=== PATIENT | female | born 1970 | race Caucasian/White ===

== ENCOUNTER 2025-06-25 14:55 | Outpatient (AMB) | payer OTHER, SELFPAY ==
--- NOTE | 2025-06-25 15:32 | MHC.OFFVIS ---
Vital Signs 06/25/25 15:37 Height 5 ft 4 in Weight 150 lb BMI 25.7 Intake Visit Reasons: MRI followup Intake Note: Patient is a 54 year old female here today to review recent MRI. pain has been a little better the past week Allergies venlafaxine Allergy (Unknown, Verified 06/25/25 15:33) Unknown HPI Comments Details: History of Present Illness The patient is a 54 year old female presenting for a follow-up visit for management of right-sided low back pain with radiculopathy. She reports feeling better overall since her last visit. She continues to experience occasional, intermittent pain that starts in her back and shoots to the side, described as a dull zing with a heavy sensation in the leg. She underwent right L4-5 facet injection to rupture cyst as well as right L4 TFESI. One week after the injection her symptoms became worse. I ordered MRI of her lumbar spine to ensure that everything was okay. We are reviewing it in person today. She was subsequently given prednisone taper which did provide relief of her symptoms. She reports pain level today of 3/10. 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 She has been performing exercises at home, such as lying over a pillow, which seems to provide some relief. Pain Description - Location: Right-sided low back pain. - Radiation: Pain shoots over to the right side and leg. - Quality: Described as a dull zing in the back and a heavy feeling in the leg, though it can also be sharp. - Timing: Intermittent and occurs periodically. - Severity: Pain level is reported as good today, but there have been a couple of really uncomfortable days. - Exacerbating Factors: Stretching can occasionally trigger the pain. - Relieving Factors: Moving around helps alleviate the pain when it starts, and lying over a pillow provides relief. Procedure: Left hip bursal injection 10/28/2022 Left L5 TFESI 12/09/2022 80% reduction of her pain Left hip bursal injection 02/16/2023 Right L4-5 facet injection, right L4 TFESI 04/25/2025 one-week a very good relief then her symptoms worsened. 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 - Musculoskeletal: Reports intermittent right-sided low back pain and arthritis. - Neurological: Reports intermittent pain that shoots to the side with a heavy sensation in the leg. Physical Exam Exam Exam: Physical Exam Lumbar Spine: Examination of the lumbar spine, there is no visible swelling or deformity. She is less tender of the right lower lumbar facets. She has full range of motion of the lumbar spine. She denies any increase in pain with facet loading. Special Tests: Lhermittes sign was negative Heel Toe walk is normal Left straight leg raise: Negative Right straight leg raise: Negative Special tests Ashok test is negative Ganslen's test is negative SI Joint compression test negative Yenni test negative Piriformis stretch is negative Lower Extremities: Full range of motion bilateral lower extremities. No calf pain or edema. Neuro: Sensation: Intact to lower extremities bilaterally Strength L2 (Psoas): 5/5 on the left and 5/5 on the right. L3 (Quads): 5/5 on the left and 5/5 on the right. L4 (Ant tibialis): 5/5 on the left and 5/5 on the right. L5 (EHL) 5/5 on the left and 5/5 on the right. S1 (Gastroc): 5/5 on the left and 5/5 on the right. DTR L4: (Patellar) Left 2 Right 2 S1: (Achilles) Left 2 Right 2 Babinski Downgoing No pathologic clonus. No involuntary movement. Vital Signs: BMI result Body Mass Index 25.7 Results Reviewed Results Reviewed: MRI left hip 08/03/2022 impression: Left moderate gluteus medius and minimus tendinopathy with low-grade intrasubstance tear of the gluteus medius at the greater trochanter. Moderate associated peritonitis. Left labral degeneration superimposed anterior labral degenerative tears. MRI lumbar spine without contrast 06/12/2022 impression: Unusual cystic appearing structure extending from the base of the L5 spinous process to the left lamina, left pedicle, left superior facet. There is minimal marginal enhancement. Where the lesion is largest base of the spinous process there is thinning of the overall cortex. No fracture identified. Etiology is unknown. The greatest amount of cystic spaces at the L5 levels relatively remote from the site of significant bilateral L5-S1 facet arthropathy. No enhancing components are present to suggest underlying tumor or definitive septations or fluid levels are noted to suggest trying cell tumor. There is concern for continued progression could lead to path phonological laminar fracture, continued follow-up MRI or CT suggested. MRI lumbar spine 06/03/2025 impression: Multilevel lumbar spondylosis, as above, most prominent L4-5 and L5-S1. Grade 1 anterior listhesis of L4 on L5 and L5 on S1. Cystic change along the posterior aspect of L5. Assessment & Plan Assessment & Plan (1) Lumbar radiculopathy: Code(s): M54.16 - Radiculopathy, lumbar region Category: Medical (2) Lumbar spondylosis: Code(s): M47.816 - Spondylosis without myelopathy or radiculopathy, lumbar region Category: Medical Plan Pain Management - Analgesia: The patient reports her pain today is good. - She previously had an injection and a course of prednisone, both of which provided significant relief. - She had been taking half a pill of an unspecified medication but discontinued it, feeling it was no longer needed. 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 - Adverse Effects: The patient expressed initial concerns about gaining weight or developing a fat face from prednisone but did not report experiencing these side effects. 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 - While some days have been uncomfortable, she reports she is not dying at the end of the day. - The prednisone made her feel more energetic and able to complete chores. - Aberrant Drug Related Behaviors: No aberrant behaviors were reported. Plan Patient was informed and verbally consented to the use of an ambient scribe for clinic note documentation during this visit. 1. Right-Sided Low Back Pain With Radiculopathy The patient reports overall improvement in her symptoms. A recent MRI was reviewed, which showed no evidence of infection or progression of a previously noted synovial cyst; in fact, the cyst is no longer clearly visible. The scan confirms bilateral neuroforaminal narrowing at L4-L5, which is touching the exiting right L4 nerve root and is the likely cause of her radicular symptoms. The patient will continue with conservative management, including home exercises. The use of turmeric was discussed as a natural anti-inflammatory. Options for future acute exacerbations include a prednisone taper or a repeat transforaminal epidural steroid injection. The patient will continue with her current regimen and follow up as needed. Discussion Notes I reviewed the patient's recent MRI results with her. I explained that there were reassuring findings, as the previously seen synovial cyst is no longer visible and there are no signs of infection or other acute issues. I informed her that the MRI confirms disc bulges, arthritis, and neuroforaminal narrowing at L4-L5, which is compressing the right L4 nerve root and is consistent with her symptoms. We discussed the patient's positive response to her recent course of prednisone. I advised her that while prednisone is an effective tool for acute flare-ups, it is not suitable for long-term use due to significant side effects, such as a negative impact on bone health. We reviewed future management options, including continuing her current exercise regimen, trying natural anti-inflammatories like turmeric, utilizing a prednisone taper for flare-ups, or considering a repeat transforaminal epidural steroid injection. The patient is in agreement with continuing conservative management and will follow up if her symptoms worsen. Patient Instructions - Your recent back MRI results are reassuring and do not show anything dangerous. - The cyst we were concerned about is no longer seen. - Continue with your home exercises, such as laying over a pillow, as this appears to be helping. - You can consider trying turmeric, which is a natural anti-inflammatory supplement. - If you have a severe flare-up of pain, we can discuss either a short course of steroid pills (prednisone) or another steroid injection. - Remember that steroid pills are not for long-term use because of potential side effects. - Please call the office if your pain gets significantly worse or you develop any new or concerning symptoms. Coding Level of Care Code Tele Est Pt Level 3 (74760) Diagnoses Lumbar radiculopathy M54.16 Lumbar spondylosis M47.816
[2025-06-25 15:37] VITALS: BMI 25.7
--- OUTSIDE RECORDS SUMMARY | 2025-06-25 23:27 | XMS_ITS | Data Portability ---
Author Organization [place] - [facility] in [facility],, ANA LILIA KIRK MD Address [address] [address] Care Team Providers Care Junk Dealer Name Role Phone RONRIA Primary Care Provider Assessment No assessment recorded. Plan of Treatment Reminders Order Date Submit Date Provider Last Modified By Organization Details Last Modified Time Details Appointments None recorded. Lab pap test, thinprep, cervical 2015 016 [id number] [facility], Cytopathology Service, [address] [place], [address], 6 04:20:31 TSH + free T4, serum 2014 015 [email or web address] 1 [facility], [address] [place], [address], 5 12:24:21 pap test, thinprep, cervical 2014 015 STEWART [facility], Cytopathology Service, [address] [place], [address], 5 10:56:37 fecal occult blood, stool 2014 015 [email or web address] 1 In-Office Order, Internal Use Only DO Not Attach Compendium DO Not Attach Compendium, Do Not Delete/merge, [id number] 5 09:40:17 CBC w/ auto diff 2013 014 [email or web address] [facility], [address] [place], [address], 4 10:48:01 TSH, serum or plasma 2013 014 [facility], [address] [facility], [place], [address], 4 10:48:01 Referral None recorded. Procedures None recorded. Surgeries None recorded. Imaging MAMMO, screening , digital, bilateral 2015 016 [facility], [address], [place], [address], 7 11:48:58 MAMMO, screening , digital, bilateral 2014 015 [facility], [address], [place], [address], 5 19:06:32 Medication Orders fluoxetin e 20 mg capsule 2014 015 [email or web address] 1 [facility], [address] [place] [address], [address], 5 12:24:21 fluoxetin e 10 mg capsule 2014 015 [email or web address] 1 [facility], [address] [place] [address], [address], 5 09:40:17 Patient TargetsNo targets recorded. Patient Instructions Encounter Date Encounter Id Patient Instructions Last Modified By Organization Details Last Modified Time 12/27/2013 [id number] Vaginal Bleeding (Nonpregnancy): Care Instructions [email or web address] Not available 12/30/2013 07:21:06 She is here for a new patient visit for a complaint of constant spotting with her Mirena. Her son was born 7 months ago. She had SROM at 37 weeks gestation, not in labor. She was induced and delivered before 24 hours of SROM. Six days she developed a post uterine infection, and was treated with oral antibiotics as an out patient for 21 days, in 05/29. . She had the Mirena IUD inserted in 08/30. She notes that since the IUD was inserted she has had daily red to pink vaginal bleeding. She also has spotting after having bowel movements. She has not been sexually active since delivery due to lack of libido. She is still nursing. We discussed that she has not yet had a menses and had endometritis post , may have had a thick lining. suggest we check tsh and cbc and if no abnormality found then consider oral prometrium for 10 days to try to induce a withdrawal bleed. she is nursing, would not use synthetic progestin. We also discussed the option of a pelvic sonogram if we can not find and etiology or resolve this with a progestin withdrawl, however it has only been 4 months and it may resolve spontaneously still. All questions answered. 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 Not available 02/05/2015 09:40:17 She is here for annual exam, is doing well. Her Mirena was causing DUB previously, but now is having regular light menses, and is happy with the Mirena. She had a baby 20 months ago, and has found that this past year or so she feels dark and has gained 20 pounds because she has lost the interest in exercise that she used to have. I put down my yoga mat and I just go to sleep on it. She also has no libido, and feels uninterested in many things she used to enjoy. She denies poor parenting or suicidal ideation. We discussed issues of depression. Both her and sister have asked her if she had this, they are concerned. She agrees it is likely. She agrees to proxzac 10 mg a day for three months then return in 3 months for further evaluation and assessment. She has 2 breast masses which might be post surgical and is overdue for mammo, she will get mammo now. She agrees to call if they seem to get any larger. She is advised to get 1500 mg of calcium daily into her diet and supplements combined. There is a health benefit with adequate vitamin D supplementation to at least 400 units daily, daily aerobic exercise of 30 minutes, and stress reduction. Monthly self breast exam was taught, and stressed, and is advised to call if she discovers any new mass in the breast. Seat belt use for herself and passengers are advised. There are significant health benefits of becoming and remainig fit, with an optimal BMI. There is a potential reduction in chronic discomfort, diminished risks of hypertension, diabetes, and heart disease with the proper weight management. With a recommended BMI there can be improved mobility as she ages. Strategies to reach and maintain her target weight were discussed in detail. 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 She was begun on prozac, 10 mg a day, in January. She was 20 month at the time. After a month she noted I felt like I didn't have to cry, and felt that she was improved over how she had felt since childbirth. She notes she has had some depressive issues mildly on and off, since then, however in the past few weeks it has worsened, and she has also begun having anxiety attacks. She is uncertain if these are cyclic with her menses. Her father at age 46, when her mother was age 43. Her mother attempted suicide on Vincent [address] at the age of 44. The patient has this on her mind as well, although she denies suicidal ideation herself. She does wonder, however, if depression runs in her family. Her father was an alcoholic. the patient does not drink alcohol often, Because that can run in families also. Note from 01/2015: Discussion Notes She is here for annual exam, is doing well. Her Mirena was causing DUB previously, but now is having regular light menses, and is happy with the Mirena. She had a baby 20 months ago, and has found that this past year or so she feels dark and has gained 20 pounds because she has lost the interest in exercise that she used to have. I put down my yoga mat and I just go to sleep on it. She also has no libido, and feels uninterested in many things she used to enjoy. She denies poor parenting or suicidal ideation. We discussed issues of depression. Both her and sister have asked her if she had this, they are concerned. She agrees it is likely. She agrees to proxzac 10 mg a day for three months then return in 3 months for further evaluation and assessment. We had a long disucssion about all this. The holidays are always a difficult time for families, and life stresses abound. She agrees that she has been under unusual stress due to all this. We discussed increasing her to 20 mg a day of prozac and she feels this is a good choice. She has a parent who had alcohol abuse issues and another who attempted suicide on Bioserie, just a year younger than the age that she is now. We discussed the issues with this, as well. She denies suicidal ideation. We discussed the benefits of having her go for behavioral health sessions, she agrees to do so. She could also be having some yan-menopausal issues, and is advised to read The Change Before the Change', and to keep a record of when the anxiety attacks occur, in relation to her menses. She also seems to have a trace of lid lag on exam, verónica check TSH and Free T4. She has an appointment soon with her PCP, she will also discuss all this with him, and I will send a copy of today's note to him, as well. Plan: Increase prozac to 20 mg a day, return in 2 months for recheck check TSH and FT4 Follow up with PCP and consider behavioral health discussions Face to face discussion 35 minutes alfred Not available 07/06/2015 12:24:21 02/18/2016 [id number] She is here for annual exam. Ian placed 08/2013. She is still having normal regular menses. She stopped the prozac a few months ago, she had a post depression, but feels now that she is doing well off of it. She does have epsodes of anxiety during the day. She has gained 30 pounds also. She will discuss this with her PCP. She appears to be doing well. She is advised to get 1500 mg of calcium daily into her diet and supplements combined. There is a health benefit with adequate vitamin D supplementation to at least 400 units daily, daily aerobic exercise of 30 minutes, and stress reduction. Monthly self breast exam was taught, and stressed, and is advised to call if she discovers any new mass in the breast. Seat belt use for herself and passengers are advised. There are significant health benefits of becoming and remainig fit, with an optimal BMI. There is a potential reduction in chronic discomfort, diminished risks of hypertension, diabetes, and heart disease with the proper weight management. With a recommended BMI there can be improved mobility as she ages. Strategies to reach and maintain her target weight were discussed in detail. She will follow up Ron ramachandran Dr concerning her anxiety symptoms , difficult staying asleep, and weight gain. Not available 02/18/2016 16:09:58 Reason for Referral None Reported. Results Created Date Observation Date Name Description Value Unit Range Abnormal Flag Note LastModifiedBy Organization Detail LastModifiedTime 02/06/20 15 02/05/2015 fecal occul t blood , stool Occult Blood negati ve Not Available In-Office Order Internal Use Only DO Not Attach Compendium DO Not Attach Compendium, Do Not Delete/merge, [id number] 02/05/2015 08:38:30 02/06/20 15 02/05/2015 pap, LB [id number] ThinP rep Pap, Image d: NEGAT RICHARD FOR SQUAM OUS INTRA EPITH ELIAL ANDRES Mcdonald AND IFEOMA HAN . Daniel Brown hers, [place]( CP) (Case elect dian kinney wilbur d 02 10 2015) ADEQU ACY: Satis facto ry. Endoc ervic al/tr ansfo rmati on zone compo nent prese nt. SOURC E: ThinP rep Pap, Cervi vicki, Image d CLINI VICKI INFOR MATIO N: HPV If Diagn osis of ASCUS . LMP * Cytop athol ogy servi alcides provi ded by [facility] at the above addre ss. Not Available [facility] Cytopathology Service [address] [place], [address], 02/10/2015 10:56:37 07/06/20 15 07/06/2015 T4, free, serum comments [facility] [address] [facility] [place] [address] [phone] Not Available [facility] [address] [place], [address], 07/07/2015 04:21:17 07/06/20 15 07/06/2015 T4, free, serum free T4 0.94 NG/dL 0.70-1 .80 Not Available [facility] [address] [place], [address], 07/07/2015 04:21:17 07/06/20 15 07/06/2015 TSH, serum or plasm a comments [facility] [address] [facility] [place] [address] [phone] 00 Not Available [facility] [address] [place], [address], 07/07/2015 04:21:23 07/06/20 15 07/06/2015 TSH, serum or plasm a TSH 1.41 uIU/m L 0.40-4 .00 Not Available [facility] [address] [place], [address], 07/07/2015 04:21:23 02/18/20 16 02/18/2016 pap, LB [id number] ThinP rep Pap, Image d: NEGAT RICHARD FOR SQUAM OUS INTRA EPITH ELIAL LESIO N AND MALMIQUEL HAN . Herbert Lee a, CT( CP) (Case elect dian bowles d 02 19 2016) ADEQU ACY: Satis facto ry. Endoc ervic al/tr ansfo rmati on zone compo nent prese nt. SOURC E: ThinP rep Pap HPV IF ASCUS , Cervi vicki, Image d CLINI VICKI INFOR MATIO N: HPV If Diagn osis of ASCUS . last pap Not Available [facility] Cytopathology Service [address] [facility], [place], [address], 02/19/2016 16:05:28 02/18/20 15 02/17/2015 MAMMO , scree vee, digit al, bilat eral No observ ation record ed. [email or web address] [facility] [address], [place], [address], 02/18/2015 09:19:17 02/21/20 15 02/20/2015 digit al mammo gram, speci al views , unila teral No observ ation record ed. [facility] [address], [place], [address], 02/21/2015 09:09:30 Result Notes None recorded. Problems Name Problem SNOMED Code Status Onset Date Resolution Date Notes Provider Name and Address Organization Details Recorded Time Dysfunctio nal uterine bleeding Active Ana Lilia Kirk MD [address], [place], [address], [place] - [facility] [place] [facility], 5 12:25:56 Mammograph y abnormal 308106373 Active Ana Lilia Kirk MD [address], [place], [address], [place] [facility] [place] [facility], 5 12:25:56 Family history of alcoholism 327435098 Active father- alcoholism Ana Lilia Kirk MD [address] [employer],[address], [place], [address], [place] [facility], 5 12:25:56 Family history of mental disorder 736597126 Active mother- attempted suicide on Vincent [address], age 44 Ana Lilia Kirk MD [address], [place], [address], [place] [facility] [place] [facility], 5 12:25:56 Endometrit is 81061493 Active 2012 Ana Lilia Kirk MD [address] [employer],[address], [place], [address], [place] - [facility], 5 12:25:56 depression 05168502 Active 2014 prozac increased to 20 mg 07/06/15 Ana Lilia Kirk MD [address] [facility] [address], [address], [place] [facility], 5 12:25:56 Problem Notes None recorded. Procedures Surgical History Date Name Laterality Status Provider Name and Address Organization Details Recorded Time 9 Other completed [facility] - [facility], 12/27/2013 16:16:22 0 Laparoscopy completed [facility] - [facility], 02/05/2015 08:37:59 9 Breast Biopsy completed [facility] - [facility] in [facility], 12/27/2013 16:16:22 Imaging Results None recorded. Procedure Notes None recorded. Medical Equipment None Reported. Allergies No known drug allergies Medications Name Sig Start Date Stop Date Status Note LastModified by Organization Details LastModified Time doxycycline hyclate 100 mg capsule active Not Available Not Available N ot Available meloxicam 15 mg tablet 02/17 completed Not Available Not Available Not Available metronidazol e 500 mg tablet active Not Available Not Available Not Available oxycodone-ac etaminophen 5 mg-325 mg tablet active Not Available Not Available Not Available fluoxetine 10 mg capsule Take 1 capsule every day by oral route. 02/17 completed Not Available Not Available Not Available hydrocodone 5 mg-acetamino phen 500 mg tablet active Not Available Not Available Not Available ibuprofen 600 mg tablet active Not Available Not Available Not Available fluoxetine 20 mg capsule Take 1 capsule every day by oral route. 02/17 completed Not Available Not Available Not Available amoxicillin 875 mg-potassium clavulanate 125 mg tablet active Not Available Not Available Not Available active Not Available Not Avai lable Not Available Vitals Date Recorded Body height Body weight Body mass index (BMI) Heart rate Systolic And Diastolic Provider Name and Address Organization Details Last Updated DateTime 12/27/2013 163.83 cm 05394.40 0888 g 27.4 kg/m2 73 /min 131/85 mm[Hg] Arlyn Miner in [facility], 12/27/2013 16:16:22 Date Recorded Body weight Heart rate Body mass index (BMI) Body height Systolic And Diastolic Provider Name and Address Organization Details Last Updated DateTime 02/05/2015 39126.63 261 g 100 /min 26.3 kg/m2 162.56 cm 140/96 mm[Hg] Arlyn Miner in [facility], 02/05/2015 08:37:59 Date Recorded Body height Body weight Body mass index (BMI) Heart rate Systolic And Diastolic Provider Name and Address Organization Details Last Updated DateTime 02/18/2016 162.56 cm 25395.36 g 28.7 kg/m2 93 /min 140/90 mm[Hg] Arlyn Miner in [facility], 02/18/2016 15:25:54 Date Recorded Body height Body weight Body mass index (BMI) Heart rate Systolic And Diastolic Provider Name and Address Organization Details Last Updated DateTime 07/06/2015 162.56 cm 18846.22 498 g 26.4 kg/m2 91 /min 145/81 mm[Hg] Vesta Bradshawkev Miner in [facility], 07/06/2015 11:16:40 Social History Question Answer Notes LastModified by Organizat ion Details LastModified Time Tobacco Smoking Status Former Smoker Not Available [facility] 05/19/2020 03:19:40 What Is Your Level Of Caffeine Consumption? Moderate [id number] Information not available 05/19/2020 What Type Of Diet Are You Following? REGULAR [id number] Information not available 05/19/2020 Which Illicit Or Recreational Drugs Have You Used? No [id number] Information not available 05/19/2020 Do You Reside In Or Have You Traveled To An Area Where Ebola Virus Transmission Is Active? No [id number] Information not available 05/19/2020 Education 2 Year College Information not available 12/27/2013 High Number Of Sexual Partners No Information not available 02/18/2016 To Which Gender Do You Self-identify? Female Information not available 02/18/2016 Marital Status Informatio n not available 12/27/2013 Are You Sexually Active? Yes No Sex Drive Right Now [id number] Information not available 05/19/2020 How Much Tobacco Do You Smoke? No [id number] Information not available 05/19/2020 General Stress Level Medium Having A Little Anxiety Information not available 02/05/2015 How Many Years Have You Smoked Tobacco? 20 [id number] Information not available 05/19/2020 Have You Recently (within The Last 12 Weeks, Or During A Current ) Traveled To Or Lived In A Zika-affected Area? No Information not available 02/18/2016 Sex: Unknown Functional Status Question Answer Note LastModified by Organizat ion Details LastModified Time What is your level of alcohol consumption? 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 None [id number] Information not available 05/19/2020 Mental Status None recorded. Family History Relationship Description Onset Age of this Age Resolved Age Notes LastModified by Organization Details LastModified Time Father Problem 46 cancer , rare rapid Not available 07/06/2015 12:17:27 Medical History Condition Response Anesthesia complications N High Blood Pressure N Candidate for MyRisk panel N Autoimmune Condition N Thyroid Problems Y Kidney or Bladder Problems N Depression Y GI Problems N Lung Disease N Defects or Inherited Disease N Anemia N History of Ovarian Cancer N History of Breast Cancer N AVI exposure N BRCA testing in past N Osteopenia N Psychiatric Illness N Diabetes N Anxiety Disorder Y Arthritis N Headaches or Migraines N Infertility N Asthma N History of Cancer N Endometriosis Y Hepatitis N Heart Disease N Hypertension N Osteoporosis N Gynecological History Statement/Question Response Dysmenorrhea Flow Moderate Date of LMP 01/30/2016 Frequency of Cycle (Q days) 30 Duration of Flow (days) Age at Menarche Current Control Method IUD Age at First Child 38 Obstetrics History GPAL:G 8 P 2 0 6 2 Type Value Full Term 2 Spontaneous 6 Living 2 Total 8 Immunizations Vaccine Type Date Status Note Provider Nimesh calzada and Address Organization Details Recorded Time Influenza, split virus, trivalent, preservative 3 completed GIANLU[place] Ortiz in [facility], 12/27/2013 16:16:22 Influenza, split virus, trivalent, preservative 4 completed GIANLUCA Ortiz in [facility], 02/05/2015 08:37:59 influenza, unspecified formulation 5 completed GIANLUCA Ortiz in [facility], 02/18/2016 15:27:33 Past Encounters Encounter ID Performer Location Encounter Start Date Encounter Closed Date Diagnosis/Indication Diagnosis SNOMED-CT Code Diagnosis ICD10 Code Diagnosis IMO Codes Diagnosis Note [id number] MD ANA LILIA Barnes MD [address] [facility] [place] [address] 12/27/2013 15:48:46 12/27/2013 16:51:47 Dysfunctional uterine bleeding 78922880 [id number] MD ANA LILIA Barnes MD [address] [facility] [place] [address] 02/05/2015 08:24:16 02/05/2015 10:43:29 Specialized medical examination 26471710 Screening for malignant neoplasm of rectum 693125663 Screening mammography 81298341 depression 74247925 [id number] MD ANA LILIA Barnes MD [address] [facility] [place] [address] 07/06/2015 11:00:41 07/06/2015 13:43:14 depression 06135545 [id number] [id number] MD ANA LILIA Barnes MD [address] [facility] [place] [address] 02/18/2016 15:21:41 02/19/2016 08:41:07 Specialized medical examination 43160115 Z01.419 Screening for malignant neoplasm of rectum 027578751 Z12.12 Screening mammography 24 221690 Z12.31 Health Concerns Section Related Observation LastModified by Organization Detai ls LastModified Time None Recorded Concern Status LastModified by Organization Details LastModified Time None Recorded Advance Directives Directive None Recorded Payers Insurance Date Sequence Insurance Name Policy Number Policy Figueroa Covered Member ID Figueroa Member ID Guarantor Name 02/15/2016 1 [place] [id number] Danette Mancilla [id number] Danette Mancilla Notes Date Note Type Note Provider Name and Address Organization Details Recorded Time 12/27/2013 text/html ROS as noted in the HPI Ana Lilia Kirk MD [address], [place], [address], [place] - [facility], 12/27/2013 16:49:05 02/05/2015 text/html ROS as noted in the HPI Ana Lilia Kirk MD [address], [place], [address], [place] - [facility], 02/05/2015 09:40:36 07/06/2015 text/html ROS as noted in the HPI Ana Lilia Kirk MD [address], [place], [address], [place] - [facility], 07/06/2015 12:34:17 02/18/2016 text/html She is here for annual exam. She stopped the prozac a few months ago, she had a post depression, but feels now that she is doing well off of it. Ana Lilia Kirk MD [address], [place], [address], [place] - [facility], 02/18/2016 16:11:01 OBGyn Episode No OBEpisode recorded.
--- OUTSIDE RECORDS SUMMARY | 2025-06-25 23:27 | XMS_ITS | Encounter Summary ---
Author Organization [facility] Address [address] [place] [phone] Care Team Providers Care Brick Yard Hand Name Role Phone Jefferson Zhang Primary Care Provider Encounter Details Date Type Department Care Team (Late st Contact Info) Description 10/19/2021 Scanned Document [facility] [address] [facility] [address] [facility] [address] [place] [address] Provider, Historical . Social History Tobacco Use Types Packs/Day Years Used Date Smoking Tobacco: Never Assessed Comments Unknown Sex and Gender Information Value Date Recorded Sex Assigned at Female 11/17/2021 3:04 PM EDT Legal Sex Female 12:48 PM EST Gender Identity Female 11/17/2021 3:04 PM EDT Sexual Orientation Straight 11/17/2021 3: 04 PM EDT documented as of this encounter Plan of Treatment Not on file documented as of this encounter Procedures Procedure Name Priority Date/Time Associated Diagnosis Comments LAB SCAN Routine 10/14/2021 documented in this encounter Results * Lab Scan (10/14/2021) us Historical Provider LAB BLOOD ORDERABLES Final R esult documented in this encounter Visit Diagnoses Not on filedocumented in this encounter Care Teams Brick Yard Hand Relationship Specialty Start Date End Date Jefferson Zhang PA [address] [facility] [address] [place] [phone] PCP - General 11/05/21 documented as of this encounter
--- OUTSIDE RECORDS SUMMARY | 2025-06-25 23:27 | XMS_ITS | Encounter Summary ---
Author Organization [facility] Address [address] [place] [address] Phone Care Team Providers Care Plasterer Apprentice Name Role Phone Lior Velasquez MD Primary Care Provider [phone] Reason for Referral * Physical Therapy (Routine) - Closed Specialty Diagnoses / Procedures Referred By Contac t Referred To Contact Physical Therapy Diagnoses Pelvic pain in female chronic pelvic pain System, Provider Not In, PhD [id number] [place] [address] Phone: tel: Referral ID Status Reason Start Date Expiration Date Visits Re quested Visits Authorized [id number] Closed 09/04/2018 07/16/2019 20 20 Encounter Details Date Type Department Care Team (Latest Contact Info) Description 09/04/2018 Transcribe Orders [facility] [address] [place] [address] Lior Velasquez MD [address] [place] [phone] Pelvic pain in female (Primary Dx) Social History Tobacco Use Types Packs/Day Years Used Date Smoking Tobacco: Never Assessed Comments Unknown Sex and Gender Information Value Date Recorded Sex Assigned at Not on file Legal Sex Female 4:59 PM EST Gender Identity Not on file Sexual Orientation Not on file documented as of this encounter Plan of Treatment Not on file documented as of this encounter Procedures Procedure Name Priority Date/Time Associated Diagnosis Comments AMB REFERRAL TO [facility] PHYSICAL THERAPY Routine 09/11/2018 1:09 PM EST Pelvic pain in female documented in this encounter Results * Ambulatory referral to [facility] Physical Therapy (09/11/2018 1:09 PM EST) us Provider Not In System PhD AMB [facility] REFERRALS Fin al Result documented in this encounter Visit Diagnoses Diagnosis Pelvic pain in female- Primary Unspecified symptom associated with female genital organs documented in this encounter Care Teams Plasterer Apprentice Relationship Specialty Start Date End Date Lior Velasquez MD [address] [place] [phone] PCP - General Internal Medicine 08/31/18 documented as of this encounter Additional Source Comments The information contained in this document represents components of the legal health record. It is not the complete legal health record.[facility]
--- OUTSIDE RECORDS SUMMARY | 2025-06-25 23:27 | XMS_ITS | Clinical Summary ---
Author Organization [facility] Address [address] [place] [phone] Phone Care Team Providers Care Milking Machine Operator Name Role Phone Lior Velasquez MD Primary Care Provider [phone] Social History Tobacco Use Types Packs/Day Years Used Date Smoking Tobacco: Never Assessed Education Answer Date Recorded Are you interested in more education? Not on vianca e 11/11/2022 Are you concerned about learning? Not on file 11/11/2022 No 11/11/2022 No 11/11/2022 Digital Access Answer Date Recorded No 12/10/2022 No 12/10/2022 No 12/10/2022 Reliable internet access at home? Not on file 12/10/2022 Device with a working camera? Not on file Comments Unknown Sex and Gender Information Value Date Recorded Sex Assigned at Not on file Legal Sex Female 4:59 PM EST Gender Identity Not on file Sexual Orientation Not on file Plan of Treatment Health Maintenance Due Date Last Done Comments LIPID PANEL 1970 DEPRESSION SCREENING 1982 SMOKING Hx and SMOKELESS TOBACCO SCREENING 1983 HEPATITIS C SCREENING 1988 HIV ONE-TIME SCREENING (18-65 YEARS) 1988 PAP SMEAR 1991 MAMMOGRAM 2010 COLOGUARD 2015 COLONOSCOPY 2015 COLORECTAL CANCER SCREENING 2015 FIT TEST 2015 FOBT 2015 SIGMOIDOSCOPY 2015 VIRTUAL COLONOSCOPY 2015 PNEUMOCOCCAL VACCINES (50+ years) (1 of 1 - PCV) 2020 ZOSTER VACCINES (1 of 2) 2020 Adult Td,Tdap Booster 05/07/2023 05/07/2013 INFLUENZA VACCINE (#1) 2025 , 06/16/2015, 05/17/2014, Additional history exists COVID-19 VACCINE (2 - 2024- season) 2025 11/04/2020 RSV VACCINE (1 - 1-dose 75+ series) 2045 HEPATITIS A VACCINES Aged Out No long er eligible based on patient's age to complete this topic HIB VACCINES Aged Out No longer eligi ble based on patient's age to complete this topic MENINGOCOCCAL VACCINES (ACWY) Aged Out No longer eligible based on patient's age to complete this topic MENINGOCOCCAL VACCINES (B) Aged Out N o longer eligible based on patient's age to complete this topic Medical Devices Not on file Insurance PPO [place] [address] [place] [address] [place] [address] [place] [address] PPO EPO Member Subscriber Plan / Payer (Ef fective 2017-Present) Name:Danette Mancilla Relation to Subscriber:Self Name:Danette Mancilla Payer ID:[id number] (NAIC) Type:PPO Address: [address] [place] [address] PPO EPO Member Subscriber Plan / Payer (Ef fective 2017-Present) Name:Danette Mancilla Relation to Subscriber:Self Name:Danette Mancilla Payer ID:[id number] (NAIC) Type:PPO Address: [facility] [address] [place], [place] PPO EPO PPO EPO PPO EPO Care Teams Milking Machine Operator Relationship Specialty Start Date End Date Lior Velasquez MD [address] [place] [phone] PCP - General Internal Medicine 08/31/18 Additional Source Comments The information contained in this document represents components of the legal health record. It is not the complete legal health record.[facility]
--- OUTSIDE RECORDS SUMMARY | 2025-06-25 23:27 | XMS_ITS | Encounter Summary ---
Author Organization [facility] Address [address] [place] [phone] Care Team Providers Care Credit Authorizer Name Role Phone Jefferson Zhang Primary Care Provider Encounter Details Date Type Department Care Team (Late st Contact Info) Description 11/19/2021 Scanned Document [facility] [address] [facility] [address] [facility] [address] [place] [address] System, Provider Not In Social History Tobacco Use Types Packs/Day Years Used Date Smoking Tobacco: Former Cigarettes 0 Q uit: 1991 Smokeless Tobacco: Never Alcohol Use Standard Drinks/Week Comments Yes 2 (1 standard drink = 0.6 oz pur e alcohol) 2-4 beer or wine per week PHQ-2 Answer Date Recorded PHQ-2 Total Score 0 11/19/2021 Comments Unknown Sex and Gender Information Value Date Recorded Sex Assigned at Female 11/17/2021 3:04 PM EDT Legal Sex Female 12:48 PM EST Gender Identity Female 11/17/2021 3:04 PM EDT Sexual Orientation Straight 11/17/2021 3: 04 PM EDT documented as of this encounter Plan of Treatment Not on file documented as of this encounter Procedures Procedure Name Priority Date/Time Associated Diagnosis Comments SARS COV-2 (COVID-19) POC AN TIGEN (ABSTRACTED) Routine 11/19/2021 documented in this encounter Results * SARS CoV-2 (COVID-19) Antigen (Abstracted) (11/19/2021) Viral us Provider Not In System MICROBIOLOGY - GENERAL OR DERABLES Final Result documented in this encounter Visit Diagnoses Not on filedocumented in this encounter Additional Health Concerns Assessment Noted Time PHQ-9 Depression Total Score: 0 11/20/19 22 8:47 AM EDT documented as of this encounter Care Teams Credit Authorizer Relationship Specialty Start Date End Date Jefferson Zhang PA [address] [phone] PCP - General 11/05/21 documented as of this encounter
--- OUTSIDE RECORDS SUMMARY | 2025-06-25 23:27 | XMS_ITS | Data Portability ---
Author Organization [facility], Main Office Address [address] [place] [address] Care Team Providers Care Septic Cleaner Name Role Phone KATRIN BURNS Garage Supervisor [facility] ANDREW PARIS General Surgeon [facility] PRESS OPERATOR Garage Supervisor LIOR BARBOUR Pain Management HENRY BAILEY Primary Care Provider Unavailabl e Assessment Encounter Date Assessment Date Assessment LastModified by Organization Details LastModified Time 02/08/2023 02/08/2023 This service was provided using telemedicine. Patient consented to video & audio visit Patient was located in the [facility]. Provider was located in the office. No other persons participated in the telemedicine visit except for the patient unless otherwise indicated here. Total time of visit was 30 minutes. [email or web address] Not available 02/08/2023 10:53:47 08/04/2023 08/04/2023 This service was provided using telemedicine. Patient consented to video & audio visit Patient was located in the [facility]. Provider was located in the office. No other persons participated in the telemedicine visit except for the patient unless otherwise indicated here. Total time of visit was 30 minutes. [email or web address] Not available 08/04/2023 10:04:34 06/26/2024 06/26/2024 This service was provided using telemedicine. Patient consented to video & audio visit Patient was located in the [facility]. Provider was located in the office. No other persons participated in the telemedicine visit except for the patient unless otherwise indicated here. Total time of visit was 18 minutes. [email or web address] Not available 06/26/2024 14:38:17 Plan of Treatment Reminders Order Date Submit Date Provider Last Modified By Organization Details Last Modified Time Details Appointments None recorde d. Lab iron + TIBC + ferriti n, serum 2023 [facility], [address], [place], [address], 08:09:20 vitamin B12 + folate, serum or blood 2023 [facility], [address], [address], [place], [address], 08:09:23 lipid panel, serum 2023 [facility], [address], [place], [address], 08:09:23 CBC w/ auto diff 2023 [facility], [address], [address], [place], [address], 08:09:21 TSH + free T4, serum 2023 [facility], [address], [address], [place], [address], 08:09:20 CMP, serum or plasma 2023 [facility], [address], [place], [address], 08:09:22 magnesi um, serum or plasma 2023 [facility], [address], [address], [place], [address], 08:09:26 lh + FSH, serum 2023 024 [facility], [address], [place], [address], 4 08:09:24 estradi ol, serum 2023 024 [facility], [address], [place], [address], 4 08:09:25 lipid panel, serum 2023 024 [facility], [address], [place], [address], 4 18:42:57 CMP, serum or plasma 2023 024 [facility], [address], [place], [address], 4 18:42:55 TSH, serum or plasma 2023 024 [facility], [address], [place], [address], 4 18:47:15 CBC w/ auto diff 2023 024 [facility], [address], [place], [address], 4 16:51:09 Referral None recorde d. Procedures None recorde d. Surgeries None recorde d. Imaging MAMMO, screeni ng, bilater al - due for screeni ng 2023 024 [facility], [address], [place], [address], 4 09:11:28 Medication Orders estradi ol 0.05 mg/24 hr semiwee kly transde rmal patch 2023 024 [facility], [facility] [place], [address], 4 14:35:50 progest erone microni zed 100 mg capsule 2023 024 [facility], [address] [place] [address], [address], 4 14:35:49 progest erone microni zed 100 mg capsule 2023 024 [facility], [address] [place] [address], [address], 4 09:11:11 estradi ol 0.05 mg/24 hr semiwee kly transde rmal patch 2023 024 [facility], [address] [place] [address], [address], 4 09:11:11 atomoxe pierre 40 mg capsule 2023 024 [facility], [address] [place] [address], [address], 4 09:07:59 sertral ine 100 mg tablet 2023 024 [email or web address], [address] [place] [address], [address], 4 08:51:38 hydroco done 10 mg-acet aminoph en 325 mg tablet 2022 023 [email or web address], [address] [place] [address], [address], 3 14:56:02 Patient TargetsNo targets recorded. Patient Instructions Encounter Date Encounter Id Patient Instructions Last Modified By Organization Details Last Modified Time 02/08/2023 [id number] To call or retur n for worsening or concerns [email or web address] Not available 02/08/2023 10:36:15 08/04/2023 [id number] To call or retur n for worsening or concerns [email or web address] Not available 08/04/2023 10:05:07 09/14/2023 [id number] low back pain: exercises [email or web address] Not available 09/14/2023 09:07:22 well visit, wome n 50 to 65: care instructions [email or web address] Not available 09/14/2023 09:07:22 To call or retur n for worsening or concerns [email or web address] Not available 09/14/2023 08:54:32 05/09/2024 [id number] menopausal hormone therapy (ht): care instructions [email or web address] Not available 05/09/2024 12:12:23 To call or retur n for worsening or concerns [email or web address] Not available 05/09/2024 09:07:36 06/26/2024 [id number] To call or retur n for worsening or concerns [email or web address] Not available 06/26/2024 14:37:11 Reason for Referral None Reported. Results Created Date Observation Date Name Description Value Unit Range Abnormal Flag Note LastModifiedBy Organization Detail LastModifiedTime 09/14/1909/14/2023 COMPL ETE CBC WITH DIFF WBC 4.9 K/mm3 (4.0-1 1.0) Not Available [facility] (Centralized Electronic Ordering - All Locations) Patient Can Go To The Location Of Their Choice, 09/14/2023 16:51:09 09/14/1909/14/2023 COMPL ETE CBC WITH DIFF RBC 4.93 M/mm3 (4.20- 5.40) Not Available [facility] (Centralized Electronic Ordering - All Locations) Patient Can Go To The Location Of Their Choice, 09/14/2023 16:51:09 09/14/1909/14/2023 COMPL ETE CBC WITH DIFF HGB 14.8 gm/dL (11.7- 15.5) Not Available [facility] (Centralized Electronic Ordering - All Locations) Patient Can Go To The Location Of Their Choice, 09/14/2023 16:51:09 09/14/19 24 09/14/2023 COMPL ETE CBC WITH DIFF HCT 46.1 % (35.7- 45.8) high Not Available [facility] (Centralized Electronic Ordering - All Locations) Patient Can Go To The Location Of Their Choice, 09/14/2023 16:51:09/14/1909/14/2023 COMPL ETE CBC WITH DIFF MCV 93.5 fL (80.0- 100.0) Not Available [facility] (Centralized Electronic Ordering - All Locations) Patient Can Go To The Location Of Their Choice, 09/14/2023 16:51:09/14/1909/14/2023 COMPL ETE CBC WITH DIFF MCH 30.0 pg (27.0- 34.0) Not Available [facility] (Centralized Electronic Ordering - All Locations) Patient Can Go To The Location Of Their Choice, 09/14/2023 16:51:09/14/1909/14/2023 COMPL ETE CBC WITH DIFF MCHC 32.1 g/dL (33.0- 37.0) low Not Available [facility] (Centralized Electronic Ordering - All Locations) Patient Can Go To The Location Of Their Choice, 09/14/2023 16:51:09/14/1909/14/2023 COMPL ETE CBC WITH DIFF plt 328 K/mm3 (150-4 60) Not Available [facility] (Centralized Electronic Ordering - All Locations) Patient Can Go To The Location Of Their Choice, 09/14/2023 16:51:09/14/1909/14/2023 COMPL ETE CBC WITH DIFF RDW-SD 44.2 fL (<47.0 ) Not Available [facility] (Centralized Electronic Ordering - All Locations) Patient Can Go To The Location Of Their Choice, 09/14/2023 16:51:09/14/1909/14/2023 COMPL ETE CBC WITH DIFF MPV 9.4 fL (9.4-1 2.4) Not Available [facility] (Centralized Electronic Ordering - All Locations) Patient Can Go To The Location Of Their Choice, 09/14/2023 16:51:09/14/1909/14/2023 COMPL ETE CBC WITH DIFF automated NRBC 0.0 #/100 _WBC' s Not Available [facility] (Centralized Electronic Ordering - All Locations) Patient Can Go To The Location Of Their Choice, 09/14/2023 16:51:09 09/14/19 24 09/14/2023 COMPL ETE CBC WITH DIFF abs. NRBC 0.0 K/mm3 Not Available [facility] (Centralized Electronic Ordering - All Locations) Patient Can Go To The Location Of Their Choice, 09/14/2023 16:51:09 09/14/19 24 09/14/2023 COMPL ETE CBC WITH DIFF neut # 2.3 K/mm3 (1.3-7 .0) Not Available [facility] (Centralized Electronic Ordering - All Locations) Patient Can Go To The Location Of Their Choice, 09/14/2023 16:51:09 09/14/19 24 09/14/2023 COMPL ETE CBC WITH DIFF lymph # 2.2 K/mm3 (0.8-3 .1) Not Available [facility] (Centralized Electronic Ordering - All Locations) Patient Can Go To The Location Of Their Choice, 09/14/2023 16:51:09 09/14/1909/14/2023 COMPL ETE CBC WITH DIFF mono# 0.3 K/mm3 (0.4-0 .9) low Not Available [facility] (Centralized Electronic Ordering - All Locations) Patient Can Go To The Location Of Their Choice, 09/14/2023 16:51:09 09/14/1909/14/2023 COMPL ETE CBC WITH DIFF eo # 0.1 K/mm3 (0.0-0 .4) Not Available [facility] (Centralized Electronic Ordering - All Locations) Patient Can Go To The Location Of Their Choice, 09/14/2023 16:51:09 09/14/19 24 09/14/2023 COMPL ETE CBC WITH DIFF baso # 0.0 K/mm3 (0.0-0 .1) Not Available [facility] (Centralized Electronic Ordering - All Locations) Patient Can Go To The Location Of Their Choice, 09/14/2023 16:51:09 09/14/19 24 09/14/2023 COMPL ETE CBC WITH DIFF abs. imm gran 0.0 K/mm3 Not Available [facility] (Central[facility] Ordering - All Locations) Patient Can Go To The Location Of Their Choice, 09/14/2023 16:51:09 09/14/19 24 09/14/2023 COMPL ETE CBC WITH DIFF neut 47.5 % (44-76 ) Not Available [facility] (Centralized Electronic Ordering - All Locations) Patient Can Go To The Location Of Their Choice, 09/14/2023 16:51:09 09/14/19 24 09/14/2023 COMPL ETE CBC WITH DIFF lymph 44.7 % (15-43 ) high Not Available [facility] (Centralized Electronic Ordering - All Locations) Patient Can Go To The Location Of Their Choice, 09/14/2023 16:51:09 09/14/19 24 09/14/2023 COMPL ETE CBC WITH DIFF monocyte 6.2 % (4.5-1 0.5) Not Available [facility] (Centralized Electronic Ordering - All Locations) Patient Can Go To The Location Of Their Choice, 09/14/2023 16:51:09 09/14/19 24 09/14/2023 COMPL ETE CBC WITH DIFF eo 1.0 % (0-6) Not Available [facility] (Centralized Electronic Ordering - All Locations) Patient Can Go To The Location Of Their Choice, 09/14/2023 16:51:09 09/14/19 24 09/14/2023 COMPL ETE CBC WITH DIFF baso 0.4 % (0-2) Not Available [facility] (Centralized Electronic Ordering - All Locations) Patient Can Go To The Location Of Their Choice, 09/14/2023 16:51:09 09/14/19 24 09/14/2023 COMPL ETE CBC WITH DIFF imm gran 0.2 % Not Available [facility] (Centralized Electronic Ordering - All Locations) Patient Can Go To The Location Of Their Choice, 09/14/2023 16:51:09 09/14/19 24 09/14/2023 COMPR EHENS RICHARD METAB OLIC PANL glucose 103 mg/dL (70-99 ) high Not Available [facility] (Centralized Electronic Ordering - All Locations) Patient Can Go To The Location Of Their Choice, 09/14/2023 18:42:55 09/14/19 24 09/14/2023 COMPR EHENS RICHARD METAB OLIC PANL BUN 13 mg/dL (6-20) Not Available [facility] (Centralized Electronic Ordering - All Locations) Patient Can Go To The Location Of Their Choice, 09/14/2023 18:42:55 09/14/1909/14/2023 COMPR EHENS RICHARD METAB OLIC PANL creatinine 0.7 mg/dL (0.5-1 .0) Not Available [facility] (Centralized Electronic Ordering - All Locations) Patient Can Go To The Location Of Their Choice, 09/14/2023 18:42:55 09/14/1909/14/2023 COMPR EHENS RICHARD METAB OLIC PANL sodium 142 mmol/ L (133-1 45) Not Available [facility] (Centralized Electronic Ordering - All Locations) Patient Can Go To The Location Of Their Choice, 09/14/2023 18:42:55 09/14/1909/14/2023 COMPR EHENS RICHARD METAB OLIC PANL potassium 4.1 mmol/ L (3.6-5 .2) Not Available [facility] (Centralized Electronic Ordering - All Locations) Patient Can Go To The Location Of Their Choice, 09/14/2023 18:42:55 09/14/1909/14/2023 COMPR EHENS RICHARD METAB OLIC PANL chloride 104 mmol/ L (98-10 7) Not Available [facility] (Centralized Electronic Ordering - All Locations) Patient Can Go To The Location Of Their Choice, 09/14/2023 18:42:55 09/14/1909/14/2023 COMPR EHENS RICHARD METAB OLIC PANL bicarbonate 26 mmol/ L (22-29 ) Not Available [facility] (Centralized Electronic Ordering - All Locations) Patient Can Go To The Location Of Their Choice, 09/14/2023 18:42:55 09/14/1909/14/2023 COMPR EHENS RICHARD METAB OLIC PANL anion gap 12 (4-17) Not Available [facility] (Centralized Electronic Ordering - All Locations) Patient Can Go To The Location Of Their Choice, 09/14/2023 18:42:55 09/14/1909/14/2023 COMPR EHENS RICHARD METAB OLIC PANL albumin 4.8 gm/dL (3.4-4 .8) Not Available [facility] ([facility] Electronic Ordering - All Locations) Patient Can Go To The Location Of Their Choice, 09/14/2023 18:42:55 09/14/1909/14/2023 COMPR EHENS RICHARD METAB OLIC PANL calcium 10.0 mg/dL (8.6-1 0.5) Not Available [facility] ([facility]ized Electronic Ordering - All Locations) Patient Can Go To The Location Of Their Choice, 09/14/2023 18:42:55 09/14/1909/14/2023 COMPR EHENS RICHARD METAB OLIC PANL bilirubin,to bola 0.6 mg/dL (0-1.2 ) Not Available [facility] ([facility] Electronic Ordering - All Locations) Patient Can Go To The Location Of Their Choice, 09/14/2023 18:42:55 09/14/1909/14/2023 COMPR EHENS RICHARD METAB OLIC PANL total protein 7.4 gm/dL (6.2-8 .2) Not Available [facility] (Centralized Electronic Ordering - All Locations) Patient Can Go To The Location Of Their Choice, 09/14/2023 18:42:55 09/14/1909/14/2023 COMPR EHENS RICHARD METAB OLIC PANL Ag ratio 1.8 Not Available [facility] (Centralized Electronic Ordering - All Locations) Patient Can Go To The Location Of Their Choice, 09/14/2023 18:42:55 09/14/1909/14/2023 COMPR EHENS RICHARD METAB OLIC PANL AST 19 U/L (0-32) Not Available [facility] ([facility]ized Electronic Ordering - All Locations) Patient Can Go To The Location Of Their Choice, 09/14/2023 18:42:55 09/14/1909/14/2023 COMPR EHENS RICHARD METAB OLIC PANL alk phos 102 U/L (35-10 4) Not Available [facility] ([facility]ized Electronic Ordering - All Locations) Patient Can Go To The Location Of Their Choice, 09/14/2023 18:42:55 09/14/1909/14/2023 COMPR EHENS RICHARD METAB OLIC PANL ALT 15 U/L (0-33) Not Available [facility] ([facility]ized Electronic Ordering - All Locations) Patient Can Go To The Location Of Their Choice, 09/14/2023 18:42:55 09/14/1909/14/2023 COMPR EHENS RICHARD METAB OLIC PANL estimated GFR creatinine 97 mL/mi n/1.7 3_M2 Creat inine based estim ated glome rular filtr ation (eGFR ) in adult s is calcu lated using the Natio nal Kidne y Found ation recom kailey d 2020 CKD-E PI equat ion. Estim ates GFR from serum creat inine , age and sex. Not Available [facility] (Centralized Electronic Ordering - All Locations) Patient Can Go To The Location Of Their Choice, 09/14/2023 18:42:55 09/14/1909/14/2023 LIPID PANEL cholesterol, total 307 mg/dL (<200) high Not Available [facility] ([facility] Order[facility] - All Locations) Patient Can Go To The Location Of Their Choice, 09/14/2023 18:42:57 09/14/1909/14/2023 LIPID PANEL triglyceride 104 mg/dL (<150) Not Available [facility] ([facility] Order[facility] - All Locations) Patient Can Go To The Location Of Their Choice, 09/14/2023 18:42:57 09/14/1909/14/2023 LIPID PANEL HDL chol 72 mg/dL (>39) Not Available [facility] ([facility] Ordering - All Locations) Patient Can Go To The Location Of Their Choice, 09/14/2023 18:42:57 09/14/1909/14/2023 LIPID PANEL LDL cholesterol, calculated 214 mg/dL (0-130 ) high Not Available [facility] ([facility] Ordering - All Locations) Patient Can Go To The Location Of Their Choice, 09/14/2023 18:42:57 09/14/1909/14/2023 LIPID PANEL non HDL cholesterol (calc) 235 mg/dL (<160) high Not Available [facility] ([facility] Order[facility] - All Locations) Patient Can Go To The Location Of Their Choice, 09/14/2023 18:42:57 09/14/1909/14/2023 TSH WITH REFLE X TO FT4 TSH 1.05 uIU/m L (0.4-4 .2) Not Available [facility] ([facility] Ordering - All Locations) Patient Can Go To The Location Of Their Choice, [id number] 09/14/2023 18:47:15 05/09/2005/10/2024 FE+TI BC+FE R iron bind.cap.(TI BC) 270 ug/dL 250-45 0 normal Not Available [facility] ([facility]) [address] [place], [address], 05/10/2024 08:09:19 05/09/2005/10/2024 FE+TI BC+FE R UIBC 117 ug/dL 131-42 5 below low normal Not Available [facility] ([facility]) [address] [place], [address], 05/10/2024 08:09:19 05/09/2005/10/2024 FE+TI BC+FE R iron 153 ug/dL 27-159 normal Not Available [facility] ([facility]) [address] [place], [address], 05/10/2024 08:09:19 05/09/2005/10/2024 FE+TI BC+FE R iron saturation 57 % 15-55 above high normal Not Available [facility] ([facility]) [address] [place], [address], 05/10/2024 08:09:19 05/09/2005/10/2024 FE+TI BC+FE R ferritin 106 NG/mL 15-150 normal Not Available [facility] ([facility]) [address] [place], [address], 05/10/2024 08:09:19 05/09/2005/10/2024 TSH+F REE T4 TSH 0.902 uIU/m L 0.450- 4.500 normal Not Available [facility] ([facility]) [address] [place], [address], 05/10/2024 08:09:20 05/09/2005/10/2024 TSH+F REE T4 T4,free(dire ct) 1.05 NG/dL 0.82-1 .77 normal Not Available [facility] ([facility]) [address] [place], [address], 05/10/2024 08:09:20 05/09/2005/09/2024 CBC WITH DIFFE RENTI AL/PL ATELE T WBC 4.6 x10e3 /uL 3.4-10 .8 normal Not Available [facility] ([facility]) [address] [place], [address], 05/10/2024 08:09:21 05/09/2005/09/2024 CBC WITH DIFFE RENTI AL/PL ATELE T RBC 4.68 x10e6 /uL 3.77-5 .28 normal Not Available [facility] ([facility]) [address] [place], [address], 05/10/2024 08:09:21 05/09/2005/09/2024 CBC WITH DIFFE RENTI AL/PL ATELE T hemoglobin 14.7 g/dL 11.1-1 5.9 normal Not Available [facility] ([facility]) [address] [place], [address], 05/10/2024 08:09:21 05/09/2005/09/2024 CBC WITH DIFFE RENTI AL/PL ATELE T hematocrit 43.7 % 34.0-4 6.6 normal Not Available [facility] ([facility]) [address] [place], [address], 05/10/2024 08:09:21 05/09/2005/09/2024 CBC WITH DIFFE RENTI AL/PL ATELE T MCV 93 fL 79-97 normal Not Available [facility] ([facility]) [address] [place], [address], 05/10/2024 08:09:21 05/09/2005/09/2024 CBC WITH DIFFE RENTI AL/PL ATELE T MCH 31.4 pg 26.6-3 3.0 normal Not Available [facility] ([facility]) [address] [facility], [place], [address], 05/10/2024 08:09:21 05/09/2005/09/2024 CBC WITH DIFFE RENTI AL/PL ATELE T MCHC 33.6 g/dL 31.5-3 5.7 normal Not Available [facility] ([facility]) [address] [place], [address], 05/10/2024 08:09:21 05/09/2005/09/2024 CBC WITH DIFFE RENTI AL/PL ATELE T RDW 12.4 % 11.7-1 5.4 Not Available [facility] ([facility]) [address] [facility], [place], [address], 05/10/2024 08:09:21 05/09/2005/09/2024 CBC WITH DIFFE RENTI AL/PL ATELE T platelets 295 x10e3 /uL 150-45 0 normal Not Available [facility] ([facility]) [address] [place], [address], 05/10/2024 08:09:21 05/09/2005/09/2024 CBC WITH DIFFE RENTI AL/PL ATELE T neutrophils 38 % not estab. normal Not Available [facility] ([facility]) [address] [place], [address], 05/10/2024 08:09:21 05/09/2005/09/2024 CBC WITH DIFFE RENTI AL/PL ATELE T lymphs 52 % not estab. normal Not Available [facility] ([facility]) [address] [place], [address], 05/10/2024 08:09:21 05/09/2005/09/2024 CBC WITH DIFFE RENTI AL/PL ATELE T monocytes 7 % not estab. normal Not Available [facility] ([facility]) [address] [facility], [place], [address], 05/10/2024 08:09:21 05/09/2005/09/2024 CBC WITH DIFFE RENTI AL/PL ATELE T eos 2 % not estab. normal Not Available [facility] ([facility]) [address] [facility], [place], [address], 05/10/2024 08:09:21 05/09/2005/09/2024 CBC WITH DIFFE RENTI AL/PL ATELE T basos 1 % not estab. 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 0 normal Not Available [facility] ([facility]) [address] [place], [address], 05/10/2024 08:09:21 05/09/2005/09/2024 CBC WITH DIFFE RENTI AL/PL ATELE T lymphs (absolute) 2.4 x10e3 /uL 0.7-3. 1 normal Not Available [facility] ([facility]) [address] [facility], [place], [address], 05/10/2024 08:09:21 05/09/2005/09/2024 CBC WITH DIFFE RENTI AL/PL ATELE T monocytes(ab solute) 0.3 x10e3 /uL 0.1-0. 9 normal Not Available [facility] ([facility]) [address] [facility], [place], [address], 05/10/2024 08:09:21 05/09/20 24 05/09/2024 CBC WITH DIFFE RENTI AL/PL ATELE T eos (absolute) 0.1 x10e3 /uL 0.0-0. 4 normal Not Available [facility] ([facility]) [address] [facility], [place], [address], 05/10/2024 08:09:21 05/09/2005/09/2024 CBC WITH DIFFE RENTI AL/PL ATELE T baso (absolute) 0.0 x10e3 /uL 0.0-0. 2 normal Not Available [facility] ([facility]) [address] [facility], [place], [address], 05/10/2024 08:09:21 05/09/2005/09/2024 CBC WITH DIFFE RENTI AL/PL ATELE T immature granulocytes 0 % not estab. Not Available [facility] ([facility]) [address] [facility], [place], [address], 05/10/2024 08:09:21 05/09/2005/09/2024 CBC WITH DIFFE RENTI AL/PL ATELE T immature grans (abs) 0.0 x10e3 /uL 0.0-0. 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 METAB OLIC PANEL (14) glucose 97 mg/dL 70-99 normal Not Available [facility] ([facility]) [address] [facility], [place], [address], 05/10/2024 08:09:22 05/09/2005/09/2024 COMP. METAB OLIC PANEL (14) BUN 15 mg/dL 6-24 normal Not Available [facility] ([facility]) [address] [facility], [place], [address], 05/10/2024 08:09:22 05/09/2005/09/2024 COMP. METAB OLIC PANEL (14) creatinine 0.81 mg/dL 0.57-1 .00 normal Not Available [facility] ([facility]) [address] [facility], [place], [address], 05/10/2024 08:09:22 05/09/2005/09/2024 COMP. METAB OLIC PANEL (14) eGFR 87 mL/mi n/1.7 3 >59 normal Not Available [facility] ([facility]) [address] [facility], [place], [address], 05/10/2024 08:09:22 05/09/2005/09/2024 COMP. METAB OLIC PANEL (14) BUN/creatini ne ratio 19 9-23 normal Not Available [facility] ([facility]) [address] [facility], [place], [address], 05/10/2024 08:09:22 05/09/20 24 05/09/2024 COMP. METAB OLIC PANEL (14) sodium 143 mmol/ L 134-14 4 normal Not Available [facility] ([facility]) [address] [place], [address], 05/10/2024 08:09:22 05/09/2005/09/2024 COMP. METAB OLIC PANEL (14) potassium 5.0 mmol/ L 3.5-5. 2 normal Not Available [facility] ([facility]) [address] [place], [address], 05/10/2024 08:09:22 05/09/2005/09/2024 COMP. METAB OLIC PANEL (14) chloride 104 mmol/ L 96-106 normal Not Available [facility] ([facility]) [address] [place], [address], 05/10/2024 08:09:22 05/09/2005/09/2024 COMP. METAB OLIC PANEL (14) carbon dioxide, total 26 mmol/ L 20-29 normal Not Available [facility] ([facility]) [address] [facility] [place], [address], 05/10/2024 08:09:22 05/09/2005/09/2024 COMP. METAB OLIC PANEL (14) calcium 9.6 mg/dL 8.7-10 .2 normal Not Available [facility] ([facility]) [address] [facility] [place], [address], 05/10/2024 08:09:22 05/09/2005/09/2024 COMP. METAB OLIC PANEL (14) protein, total 7.1 g/dL 6.0-8. 5 normal Not Available [facility] ([facility]) [address] [place], [address], 05/10/2024 08:09:22 05/09/2005/09/2024 COMP. METAB OLIC PANEL (14) albumin 4.6 g/dL 3.8-4. 9 normal Not Available [facility] ([facility]) [address] [facility] [place], [address], 05/10/2024 08:09:22 05/09/2005/09/2024 COMP. METAB OLIC PANEL (14) globulin, total 2.5 g/dL 1.5-4. 5 Not Available [facility] ([facility]) [address] [place], [address], 05/10/2024 08:09:22 05/09/2005/09/2024 COMP. METAB OLIC PANEL (14) bilirubin, total 0.5 mg/dL 0.0-1. 2 normal Not Available [facility] ([facility]) [address] [facility] [place], [address], 05/10/2024 08:09:22 05/09/20 24 05/09/2024 COMP. METAB OLIC PANEL (14) alkaline phosphatase 76 IU/L 44-121 normal Not Available [facility] ([facility]) [address] [facility], [place], [address], 05/10/2024 08:09:22 05/09/2005/09/2024 COMP. METAB OLIC PANEL (14) AST (SGOT) 26 IU/L 0-40 normal Not Available [facility] ([facility]) [address] [facility] [place], [address], 05/10/2024 08:09:22 05/09/2005/09/2024 COMP. METAB OLIC PANEL (14) ALT (SGPT) 21 IU/L 0-32 normal Not Available [facility] ([facility]) [address] [facility] [place], [address], 05/10/2024 08:09:22 05/09/2005/09/2024 LIPID PANEL cholesterol, total 265 mg/dL 100-19 9 above high normal Not Available [facility] ([facility]) [address] [facility] [place], [address], 05/10/2024 08:09:23 05/09/2005/09/2024 LIPID PANEL triglyceride s 89 mg/dL 0-149 normal Not Available [facility] ([facility]) [address] [facility] [place], [address], 05/10/2024 08:09:23 05/09/20 24 05/09/2024 LIPID PANEL HDL cholesterol 81 mg/dL >39 normal Not Available [facility] ([facility]) [address] [facility], [place], [address], 05/10/2024 08:09:23 05/09/2005/09/2024 LIPID PANEL VLDL cholesterol vicki 15 mg/dL 5-40 Not Available [facility] ([facility]) [address] [facility], [place], [address], 05/10/2024 08:09:23 05/09/2005/09/2024 LIPID PANEL LDL chol calc ([facility]) 169 mg/dL 0-99 above high normal Not Available [facility] ([facility]) [address] [facility], [place], [address], 05/10/2024 08:09:23 05/09/2005/09/2024 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 Not Available [facility] ([facility]) [address] [place], [address], 05/10/2024 08:09:23 05/09/20 24 05/10/2024 FSH AND LH LH 43.3 mIU/m L normal Adult Femal e Range Folli cular phase 2.4 - 12.6 Ovula tion phase 14.0 - 95.6 Lutea l phase 1.0 - 11.4 Postm enopa usal 7.7 - 58.5 Not Available [facility] ([facility]) [address] [place], [address], 05/10/2024 08:09:24 05/09/20 24 05/10/2024 FSH AND LH FSH 103.0 mIU/m L Adult Femal e Range Folli cular phase 3.5 - 12.5 Ovula tion phase 4.7 - 21.5 Lutea l phase 1.7 - 7.7 Postm enopa usal 25.8 - 134.8 Not Available [facility] ([facility]) [address] [place], [address], 05/10/2024 08:09:24 05/09/20 24 05/10/2024 ESTRA DIOL estradiol 5.2 pg/mL normal Adult Femal e Range Folli cular phase 12.5 - 166.0 Ovula tion phase 85.8 - 498.0 Lutea l phase 43.8 - 211.0 Postm enopa usal <6.0 - 54.7 Pregn dominic 1st trime ster 215.0 - >4300 .0 Coty ECLIA metho dolog y Not Available [facility] ([facility]) [address] [place], [address], 05/10/2024 08:09:25 05/09/20 24 05/10/2024 MAGNE SIUM magnesium 2.0 mg/dL 1.6-2. 3 normal Not Available [facility] ([facility]) [address] [facility] [place], [address], 05/10/2024 08:09:26 Result Notes None recorded. Problems Name Problem SNOMED Code Status Onset Date Resolution Date Notes Provider Name and Address Organization Details Recorded Time Hyperlipid emia 50383013 Active Sharon shrestha [facility] 1 10:13:13 Rhinitis medicament cal 41243790 Active Sharon Ruizger shrestha [facility] 1 10:13:13 Knee pain Completed 05[facility]16[facility]2016 [facility] 14:48:34 Pneumonia 914373187 Completed 05/16/2016 GIANLUCA [place], [facility] 6 14:48:29 Major depressive disorder 435208561 Active Sharon Ruizger shrestha [facility] 1 10:13:13 Attention deficit hyperactiv ity disorder, predominan tly inattentiv e type 43625137 Active 2016 [facility] 10:13:13 Hernia of anterior abdominal wall without obstructio n AND without gangrene Active 2018 [facility] 10:13:13 Low back pain 704045536 Active 2022 RAZA Cedillo [facility] [address], [place], [address] , [facility] 3 16:12:38 Generalize d anxiety disorder 33178437 Active 2022 RAZA Cedillo [address] [address], [place] [place], [address] , [facility] 3 10:35:49 Moderate recurrent major depression 50825197 Active 2022 RAZA Cedillo [address] [address], [place], [address] , [facility] 3 10:35:56 Inflammati on of sacroiliac joint 75870044 Active 2022 Jefferson Zhang, KARYNUP [address] [facility] [address], [place], [address] , [facility] 3 10:37:03 Fatigue 47038929 Active 2023 RAZA Cedillo [address] [facility] [address], [place], [address] , [facility] 4 08:55:11 Menopause present 348195540 Active 2023 RAZA Cedillo [address] [facility] [address], [place], [address] , [facility] 4 09:03:44 Anemia 534022478 Active 2023 RAZA Cedillo [address] [facility] [address], [place], [address] , [facility] 4 09:06:11 Effects of high altitude 58713639 Active 2024 Jefferson Zhang, RAZA [address] [facility] [address], [place], [address] , [facility] 5 12:32:54 Problem Notes None recorded. Procedures Surgical History Date Name Laterality Status Provider Name and Address Organization Details Recorded Time 12/10/19 23 lumbar epidural steroid injection completed Nola Guzman [facility] 12/09/2022 11:44:43 10/16/19 22 Most Recent Mammogram completed RAZA Cedillo [address] [facility] [address], [place], [address], [facility] 09/13/2022 16:11:14 10/13/19 22 Date of Last Pap Smear completed RAZA Cedillo [address] [facility] [address], [place], [address], [facility] 09/13/2022 16:11:19 04/16/20 19 ENT Surgery completed Karishma Gracia MA [facility] 05/26/2021 09:50:57 07/17/19 19 Tonsillectomy completed Karishma Gracia MA [facility] 05/26/2021 09:50:57 07/13/20 16 Mammogram screening completed Sharon Ruiz [facility] 07/14/2016 11:15:01 07/17/19 10 Hernia Repair completed Karishma Gracia MA [facility] 05/26/2021 09:50:57 07/17/19 00 Breast Biopsy completed Karishma Gracia MA [facility] 05/26/2021 09:50:57 07/17/19 00 Endometrial Ablation completed Karishma Gracia MA [facility] 05/26/2021 09:50:57 Repair of nasal septum completed Karishma Gracia MA [facility] 05/26/2021 09:50:57 Imaging Results None recorded. Procedure Notes None recorded. Medical Equipment None Reported. Allergies Allergen ID Allergen Name Allergen Category Reaction Reaction Severity Criticality Documentation Date Start Date Code Code System Note Provider Name and Address Organization Details Recorded Time 21566 venlafaxi ne medicatio n headache nausea Not available Not available Not available 05/26/2021 48393 RxNorm GIANLUCA Menezes [facility] 09:53:40 Medications Name Sig Start Date Stop Date Status Note LastModified by Organization Details LastModified Time venlafaxi ne ER 75 mg capsule,e xtended release 24 hr TAKE ONE TO TWO CAPSULES BY MOUTH EVERY DAY FOR MOOD AND ANXIETY DIRECTED . TAKE WITH FOOD 05/26 completed Not Available Not Available Not Available acetazola mide 125 mg tablet TAKE ONE TABLET BY MOUTH TWICE A DAY STARTING 24 HOURS BEFORE FLIGHT AND STOP TAKING UPON DESCENT OF FLIGHT BACK active Not Available Not Available No t Available hydrocodo ne 5 mg-acetam inophen 325 mg tablet TAKE ONE TABLET BY MOUTH EVERY 6 HOURS FOR 7 DAYS DIRECTED 02/08 completed Not Available Not Available Not Available meloxicam 15 mg tablet Take 1 tablet as needed by oral route at bedtime for 30 days. 04/20 completed Not Available Not Available Not Available clonazepa m 0.5 mg tablet TAKE ONE TABLET BY MOUTH TWICE A DAY NEEDED FOR ANXIETY. USE SPARINGL Y FOR EXTREME ANXIETY ONLY 08/19 completed Not Available Not Available Not Available sertralin e 100 mg tablet TAKE ONE TABLET BY MOUTH EVERY DAY 05/09 completed Not Available Not Available Not Available oxycodone 5 mg/5 mL oral solution 07/23 completed Not Available Not Available Not Available hydrocodo ne 10 mg-acetam inophen 325 mg tablet TAKE ONE TABLET BY MOUTH THREE TIMES A DAY DIRECTED FOR 7 DAYS 06/27 completed Not Available Not Available Not Available omeprazol e 40 mg capsule,d elayed release TAKE ONE CAPSULE BY MOUTH EVERY DAY 09/13 completed Not Available Not Available Not Available acetamino phen 500 mg tablet TAKE TWO TABLETS BY MOUTH EVERY 6 HOURS NEEDED 09/13 completed Not Available Not Available Not Available alprazola m 0.5 mg tablet Take 1 tablet twice a day by oral route as needed for 30 days. 05/26 completed Not Available Not Available Not Available lorazepam 0.5 mg tablet Take 1 tablet twice a day by oral route as directed for 14 days. 06/02 completed prn Not Available Not Available Not Available Concerta 54 mg tablet,ex tended release TAKE ONE TABLET BY MOUTH EVERY MORNING FOR ADHD 05/26 completed Not Available Not Available Not Available dextroamp hetamine- amphetami ne 20 mg tablet TAKE ONE TABLET BY MOUTH EVERY DAY UDF 05/09 completed ON HOLD WANTS TO DISCUSS WITH PROVIDER Not Available Not Available Not Available Concerta 36 mg tablet,ex tended release TAKE ONE TABLET BY MOUTH EVERY MORNING FOR ADHD 04/20 completed Not Available Not Available Not Available dextroamp hetamine- amphetami ne 15 mg tablet TAKE ONE TABLET BY MOUTH TWICE A DAY FOR ADHD 05/26 completed Not Available Not Available Not Available fluoxetin e 10 mg capsule active Not Available Not Available Not Available gabapenti n 300 mg capsule TAKE ONE CAPSULE BY MOUTH THREE TIMES A DAY NEEDED 09/13 completed Not Available Not Available Not Available buspirone 7.5 mg tablet TAKE ONE TABLET BY MOUTH TWICE A DAY NEEDED FOR ANXIETY 05/26 completed Not Available Not Available Not Available dextroamp hetamine- amphetami ne ER 10 mg 24hr capsule,e xtend release Take 1 capsule every day by oral route for 30 days. 09/11 completed Not Available Not Available Not Available hydroxyzi ne HCl 25 mg tablet TAKE ONE TABLET BY MOUTH TWICE A DAY NEEDED FOR ANXIETY completed Not Available Not Available Not Available zolpidem 5 mg tablet Take 1 tablet every day by oral route at bedtime. 08/30 completed Not Available Not Available Not Available gabapenti n 100 mg capsule Take 3 capsules 3 times a day by oral route for 15 days. 09/13 completed Not Available Not Available Not Available ibuprofen 600 mg tablet TAKE ONE TABLET BY MOUTH FOUR TIMES A DAY 04/20 completed Not Available Not Available Not Available fluoxetin e 20 mg capsule Take 1 capsule every day by oral route for 30 days. 03/22 completed Not Available Not Available Not Available sertralin e 50 mg tablet Take 1 tablet every day by oral route for 30 days. completed Not Available Not Available Not Available Sudafed 12 Hour 120 mg tablet,ex tended release Take 1 tablet every 12 hours by oral route in the evening. 07/23 completed Not Available Not Available Not Available naproxen 500 mg tablet 11/02 completed Not Available Not Available Not Available progester one micronize d 100 mg capsule TAKE ONE CAPSULE BY MOUTH EVERY DAY DIRECTED active Not Available Not Available No t Available amoxicill in 875 mg-potass ium clavulana te 125 mg tablet Take 1 tablet twice a day by oral route for 10 days. active Not Available Not Available No t Available buspirone 15 mg tablet TAKE ONE TABLET BY MOUTH TWICE A DAY FOR ANXIETY 04/20 completed Not Available Not Available Not Available oxycodone 5 mg tablet TAKE ONE TABLET BY MOUTH THREE TIMES A DAY IF NEEDED 02/08 completed Not Available Not Available Not Available escitalop hector 10 mg tablet Take 1 tablet by mouth daily as directed . 05/26 completed Not Available Not Available Not Available escitalop hcetor 20 mg tablet TAKE ONE TABLET BY MOUTH EVERY DAY 09/13 completed Not Available Not Available Not Available atomoxeti ne 40 mg capsule TAKE ONE CAPSULE BY MOUTH EVERY DAY active Not Available Not Available No t Available cyclobenz aprine 5 mg tablet TAKE ONE TABLET BY MOUTH THREE TIMES A DAY FOR 5 DAYS 09/13 completed Not Available Not Available Not Available bupropion HCl XL 300 mg 24 hr tablet, extended release TAKE ONE TABLET BY MOUTH EVERY MORNING FOR MOOD FOR 30 DAYS 04/20 completed Not Available Not Available Not Available bupropion HCl XL 150 mg 24 hr tablet, extended release TAKE ONE TABLET BY MOUTH EVERY DAY IN THE MORNING FOR MOOD 05/26 completed Not Available Not Available Not Available Multivita min 50 Plus tablet Take 1 tablet every day by oral route. active Not Available Not Available No t Available multivita min 1 tablet po daily 04/20 completed Not Available Not Available Not Available Suprep Bowel Prep Kit 17.5 gram-3.13 gram-1.6 gram oral solution FOLLOW THE PACKAGE INSTRUCT IONS 04/20 completed Not Available Not Available Not Available Minivelle 0.05 mg/24 hr transderm al patch APPLY ONE PATCH TO THE SKIN TWICE A WEEK active Not Available Not Available No t Available Flonase Sensimist 27.5 mcg/actua tion nasal spray,jose pension Take 1 spray by nasal route at bedtime for 30 days. 04/20 completed Not Available Not Available Not Available Vitals Date Recorded Body height Body mass index (BMI) Body weight Oxygen saturation Heart rate Body temperature Systolic And Diastolic Provider Name and Address Organization Details Last Updated DateTime 4 163.83 cm 26.6 kg/m2 42477.7 g 98 % 77 /min 98.3 [degF] 128/78 mm[Hg] Zeenat Bradshaw MA [facility] 4 08:48:52 Date Recorded Body height Provider Name an d Address Organization Details Last Updated DateTime 02/08/2023 163.83 cm Reece Abraham [facility] 02/08/2023 10:12:08 Date Recorded Body height Body mass index (BMI) Body weight Heart rate Oxygen saturation Body temperature Systolic And Diastolic Provider Name and Address Organization Details Last Updated DateTime 4 163.83 cm 26.2 kg/m2 55636.8 2 g 88 /min 95 % 98.3 [degF] 147/103 mm[Hg] Lucy Su MA [facility] 4 08:50:49 Date Recorded Body height Provider Name an d Address Organization Details Last Updated DateTime 06/26/2024 163.83 cm Zeenat Bradshaw MA [facility] 06/26/2024 14:17:09 Social History Question Answer Notes LastModified by Organizat ion Details LastModified Time Tobacco Smoking Status Former Smoker Kadi Gravettegalen shrestha [facility] 07/01/2014 08:27:27 Do You Have An Advance Directive? Yes HCP Information not available 04/20/2022 Is Blood Transfusion Acceptable In An Emergency? Yes Information not available 07/15/2015 What Is Your Level Of Caffeine Consumption? Moderate 1 Cup Coffee Daily Information not available 09/13/2022 How Much Tobacco Do You Chew? None Information not available 07/15/2015 What Type Of Diet Are You Following? REGULAR Information not available 07/15/2015 Which Illicit Or Recreational Drugs Have You Used? Medical Marijuana Information not available 09/13/2022 When Did You Quit Smoking? 16+yearssinc elastcigaret te Information not available 08/26/2020 Live Alone Or With Others? With Others (Keith) And 2 Children, Dog Information not available 04/20/2022 Do You Take Precautions To Prevent Distracted Driving? Yes Information not available 07/15/2015 How Often Do You Need To Have Someone Help You When You Read Instructions, Pamphlets, Or Other Written Material From Your Doctor Or Pharmacy? Never Information not available 07/15/2015 Have You Served In The ? No Information not available 08/30/2016 Have You Or Anyone In Your Household Had Any Of The Following Symptoms In The Last 14 Days: Sore Throat, Cough, Chills, Body Aches For Unknown Reasons, Shortness Of Breath For Unknown Reasons, Loss Of Smell, Loss Of Taste, Fever At Or Greater Than 100 Degrees Fahrenheit? No [email or web address] Information not available 06/02/2020 Are You Or Anyone In Your Household A Health Care Provider Or Emergency Responder? No [email or web address] Information not available 06/02/2020 To The Best Of Your Knowledge Have You Been In Close Proximity To Any Individual Who Tested Positive For COVID-19? No [email or web address] Information not available 06/02/2020 Have You Recently Traveled To A COVID-19 High Risk Area Or Gathering In The Last 10 Days? No Information not available 08/26/2020 What Was The Date Of Your Most Recent Tobacco Screening? 09/14/2023 [email or web address] Information not available 09/14/2023 How Many Children Do You Have? 2 Asher Information not available 11/02/2018 What Is Your Current Pack Years? 10-norman enrique Information not available 04/20/2022 Do You Use Protection During Sex? No Information not available 07/15/2015 Do You Use Your Seat Belt Or Car Seat Routinely? Yes Information not available 05/26/2021 Seat Belts Used Routinely Yes Information not available 04/20/2022 Are You Sexually Active? Yes Information not available 07/15/2015 Smoke Alarm In Home Yes Information not available 04/20/2022 Do You Have Smoke And Carbon Monoxide Detectors In Your Home? Yes Information not available 05/26/2021 At What Age Did You Start Smoking Tobacco? 15 Quit At 29 Information not available 07/15/2015 Are You Passively Exposed To Smoke? No Information not available 07/15/2015 How Much Tobacco Do You Smoke? No Information not available 05/26/2021 Do You Use Sunscreen Routinely? Yes Information not available 07/15/2015 How Many Years Have You Smoked Tobacco? 14 Information not available 07/15/2015 Sex: Unknown Functional Status Question Answer Note LastModified by Organizat ion Details LastModified Time Do you use any illicit or recreational drugs? Yes Information not available 09/13/2022 Do you or have you ever used any other forms of tobacco or nicotine? No Information not available 04/20/2022 What is your level of alcohol consumption? Occasional once a week Information not available 07/01/2014 Do you or have you ever used smokeless tobacco? Never used smokeless tobacco Information not available 07/23/2019 Are you currently employed? Yes Information not available 07/01/2014 Are you able to walk independently without assistance or assistive devices? YESWOREST Information not available 04/20/2022 Are you able to care for yourself independently? Yes [email or web address] Information not available 07/15/2015 What is your occupation? [place] Information not available 09/13/2022 Do you or have you ever used e-cigarettes or vape? Never used electronic cigarettes Information not available 04/20/2022 What is your exercise level? Moderate boxing, yoga Information not available 09/14/2023 Mental Status None recorded. Family History Relationship Description Onset Age of this Age Resolved Age Notes LastModified by Organization Details LastModified Time Mother Osteoporosis Not avail able 07/01/2014 08:31:41 Mother Cardiac arrest 71 deceas ed Not available 04/20/2022 10:03:42 Mother Depressive disorder Not available 2020 09:50:55 Mother Anxiety disorder Not available 2020 09:50:55 Mother Arthritis Not available 05/26/2021 09:50:55 Father Malignant neoplastic disease 46 Not available 2021 10:03:42 Father Harmful pattern of use of alcohol Not available 2020 09:50:55 Brother Malignant neoplasm of esophagus 50 [email or web address] Not available 2023 09:04:05 Medical History Condition Response Anxiety Disorder Y ADHD Y Endometriosis Y Headaches/Migraines Y GI Problems Y Depression Y Chicken Pox Y Gynecological History Statement/Question Response Menses Monthly N Date of Last Pap Smear 10/12/2021 Current Control Method None Most Recent Mammogram 10/15/2021 Obstetrics History GPAL:G 0 P 0 0 0 0 Immunizations Vaccine Type Date Status Note Provider Nam e and Address Organization Details Recorded Time Influenza, split virus, trivalent, preservative 7 completed Sharon shrestha [facility] 02/19/2021 11:48:24 COVID-19, mRNA, LNP-S, PF, 100 mcg/0.5mL dose or 50 mcg/0.25mL dose 1 [facility] 13:22:49 Influenza, split virus, quadrivalent, PF 5 completed Not Available [facility] 08/03/2019 02:22:02 Influenza, split virus, trivalent, preservative 2 completed GIANLUCA Coulter [facility] 02/08/2023 09:51:13 Tdap 3 completed GIANLUCA Coulter [facility] 05/03/2022 13:22:49 Influenza, split virus, trivalent, PF 3 completed GIANLUCA Coulter [facility] 05/03/2022 13:22:49 Tdap 3 [facility] 05/03/2022 13:22:49 Influenza, split virus, trivalent, preservative 9 completed GIANLUCA Coulter [facility] 05/03/2022 13:22:50 COVID-19, mRNA, LNP-S, PF, 100 mcg/0.5mL dose or 50 mcg/0.25mL dose 1 completed GIANLUCA Coulter [facility] 05/03/2022 13:22:50 Influenza, split virus, trivalent, preservative 2 completed GIANLUCA Coulter [facility] 05/03/2022 13:22:50 influenza, unspecified formulation 5 completed GIANLUCA Coulter, [facility] 02/08/2023 09:51:13 Influenza, split virus, trivalent, preservative 4 completed GIANLUCA Coulter, [facility] 02/08/2023 09:51:13 Influenza, split virus, quadrivalent, PF 6 completed Not Available [facility] 08/03/[facility] 02:22:07 Influenza, split virus, quadrivalent, PF 0 completed GIANLUCA Hugo, [facility] 06/02/2020 12:02:42 Influenza, split virus, quadrivalent, PF 1 completed GIANLUCA [place], [facility] 05/26/2021 10:27:03 Td (adult), 5 Lf tetanus toxoid, preservative free, adsorbed 3 completed Jefferson Zhang [facility] [address], [address], [facility] 09/14/2022 09:20:01 Influenza, split virus, trivalent, PF 4 completed Not Available [facility] 08/03/2019 02:21:58 Past Encounters Encounter ID Performer Location Encounter Start Date Encounter Closed Date Diagnosis/Indication Diagnosis SNOMED-CT Code Diagnosis ICD10 Code Diagnosis IMO Codes Diagnosis Note [id number] Lior Velasquez MD Main Office [address] [address] 07/01/2014 08:16:10 07/01/2014 09:16:51 Adult health examination 575077748 Needs infl uenza immunization 599557042 Hyperlipidemia 32080445 Rhinitis medicamentosa 28463326 [id number] Lior Velasquez MD Main Office [address] [address] 07/15/2015 10:05:54 07/15/2015 11:17:45 Adult health examination 002389623 Z00.00 Screening for malignant neoplasm of breast 407532106 Z12.39 Needs infl uenza immunization 500977982 Z23 Knee pain 59529730 M25.5 61 Major depr essive disorder 489962657 F32.9 Continue follow up with [facility] [id number] Lior Velasquez MD Main Office [address] [address] [place] [address] 03/22/2016 09:33:46 03/22/2016 10:50:44 Major depressive disorder 290518624 F32.9 Continue follow up with [facility] Insomnia 726286234 G47.0 0 Fatigue 91276222 R53.83 [id number] Lior Velasquez MD Main Office [address] [address] [place] [address] 05/16/2016 14:19:46 05/16/2016 16:08:22 Major depressive disorder 873276938 F32.9 Continue follow up with [facility] Needs infl uenza immunization 267687035 Z23 Insomnia 577490210 G47.0 0 [id number] Lior Velasquez MD Main Office [address] [address] 08/30/2016 09:37:08 08/30/2016 11:04:24 Adult health examination 493495522 Z00.00 Attention deficit hyperactivity disorder, predominantly inattentive type 27854262 F90.0 Hyperlipidemia 06411004 E78.5 Fatigue 70900201 R53.83 Major depr essive disorder 766788115 F32.9 Continue follow up with [facility] Body mass index 25-29 - overweight 241641346 E66.3 Z68.25 [id number] Destiny Russell PA-C Main Office [address] [address] 09/11/2017 10:09:19 09/11/2017 11:20:43 Adult health examination 286866640 Z00.00 up to date on vaccines. Attention deficit hyperactivity disorder, predominantly inattentive type 31959489 F90.0 Continue current meds. F/u with PCP on med changes. Major depr essive disorder 901265596 F32.9 Continue current meds. Hyperlipidemia 80648682 E78.00 Body mass index 25-29 - overweight 965380749 E66.3 Z68.26 Fatigue 30704428 R53.83 Elevated blood-pressure reading without diagnosis of hypertension 103688290 R03.0 Pt. is advised to check BP on outside and return for recheck. Pt. is not going to be able to get here for recheck. Will provide BP readings via pt. portal. REcommende d to avoid OTC meds/decon gestants and lower dietary sodium and caffeine. [id number] Lior Velasquez MD Main Office [address] [place] [address] 10/16/2017 09:48:40 10/16/2017 11:20:45 Attention deficit hyperactivity disorder, predominantly inattentive type 57298915 F90.0 Hypersomnia 17153014 G47 .10 Greater tr ochanteric pain syndrome 9853603 M70.61 Elevated blood-pressure reading without diagnosis of hypertension 645173342 R03.0 Blood pressure in the pre-hypert ensive range. Discussed management of cardiovasc ular risks and strategies to control BP. [id number] Lior Velasquez MD Main Office [address] [place] [address] 11/02/2018 10:27:17 11/02/2018 11:12:49 Adult health examination 914250590 Z00.00 Attention deficit hyperactivity disorder, predominantly inattentive type 98430850 F90.0 Screening for malignant neoplasm of breast 877378326 Z12.39 Hernia of anterior abdominal wall without obstruction AND without gangrene 434107697 K43.9 Prior hernia surgery and mesh with prior repair with mesh in 2009 an 2010. Screening for malignant neoplasm of cervix 276524493 Z12.4 Major depr essive disorder 268116226 F32.9 Has stopped meds. Feels symptoms were controlled better until recent of her mother.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
--- OUTSIDE RECORDS SUMMARY | 2025-06-25 23:27 | XMS_ITS | Clinical Summary ---
Author Organization [facility] [address] [place] [address] [place] [address] Phone Care Team Providers Care Screwhead Stoner And Polisher Name Role Phone Physician, No Pcp Primary Care Provider Unavaila ble Encounters Date Type Department Care Team Description 06/03/2025 7:09 PM EST - 06/03/2025 11:59 PM EST Hospital Encounter [facility] MRI [address] [place] [phone] Radiculopathy, lumbar region Discharge Disposition: Home or Self Care 03/31/2025 12:57 PM EDT - 03/31/2025 11:59 PM EDT Hospital Encounter Radiology Department - [address] [phone] Other spondylosis, lumbar region; Radiculopathy, lumbar region Discharge Disposition: Home or Self Care from Last 3 Months Surgical History Surgery Date Site/Laterality Comments OTHER SURGICAL HISTORY 1999 PROCEDURE: LAPAROSCOPY PROCEDURE NEC; COMMENT: endometreosis HERNIA REPAIR 08/2010 PROCEDURE: HISTORICAL HERNIA REPAIR/ING; COMMENT: mesh in 3 places on anterior abdominal wall, umbilicus and 2 others per pt Medical History Medical History Date Comments Endometriosis 1999 DX:Endometriosis Anxiety state, unspecified DX:An xiety state, unspecified Other and unspecified noninf ectious gastroenteritis and colitis(558.9) DX:Other and unspec ified noninfectious gastroenteritis and colitis(558.9) Historical Medical DX 06/24 DX:Encount er for insertion or removal of intrauterine contraceptive device; COMMENT: Mirena Family History Medical History Relation Name Comments Other cancer Father Arthritis Mother Relation Name Status Comments Brother Alive Father (Age 46) Maternal Grandfather Maternal Grandmother Mother Alive Paternal Grandfather Paternal Grandmother Sister Alive Son Alive Social History Tobacco Use Types Packs/Day Years Used Date Smoking Tobacco: Former Smokeless Tobacco: Never Alcohol Use Standard Drinks/Week Comments Yes 0 (1 standard drink = 0.6 oz pur e alcohol) Comments Unknown Sex and Gender Information Value Date Recorded Sex Assigned at Not on file Legal Sex Female 6:49 AM EST Gender Identity Not on file Sexual Orientation Not on file Plan of Treatment Health Maintenance Due Date Last Done Comments Colorectal Cancer Screening: Colonoscopy 1970 Hepatitis B Vaccines (1 of 3 - 19+ 3-dose series) 1989 Cervical Cancer Screening: Pap Smear 1991 Breast Cancer Screening 07/13/2018 07/13/2016 Pneumococcal Vaccine: 50+ Years (1 of 1 - PCV) 2020 Zoster Vaccines (1 of 2) 2020 Depression Screening 07/17/2024 COVID-19 Vaccine ( - 2024- season) 2025 02/17/2021, 11/04/2020, 10/18/2020 Influenza Vaccine (#1) 2025 , 05/26/2021, 06/02/2020, Additional history exists HIV Screening 03/28/2025 Social Influencers of Health Screening 03/28/2025 Cholesterol Screening (Lipid Panel) 11/18/2026 11/18/2021 DTaP,Tdap,and Td Vaccines (4 - Td or Tdap) 09/13/2032 09/13/2022, 05/07/2013, 04/16/2013 RSV Immunization Adult Patients (1 - 1-dose 75+ series) 2045 Hepatitis C Screening Completed 11/18/2021 HIB Vaccines Aged Out No longer eligi ble based on patient's age to complete this topic HPV Vaccines Aged Out No longer eligi ble based on patient's age to complete this topic Hepatitis A Vaccines Aged Out No long er eligible based on patient's age to complete this topic IPV Vaccines Aged Out No longer eligi ble based on patient's age to complete this topic MMR Vaccines Aged Out No longer eligi ble based on patient's age to complete this topic Meningococcal ACWY Vaccine Aged Out N o longer eligible based on patient's age to complete this topic Meningococcal B Vaccine Aged Out No l onger eligible based on patient's age to complete this topic RSV Immunization Patients Under 20 months Aged Out No longer eligible based on patient's age to complete this topic Varicella Vaccines Aged Out No longer eligible based on patient's age to complete this topic Procedures Procedure Name Priority Date/Time Associated Diagnosis Comments MR LUMBAR SPINE WO CONTRAST Routine 06/03/2025 8:13 PM EST Radiculopathy, lumbar region MR LUMBAR SPINE WO CONTRAST Routine 03/31/2025 1:53 PM EDT Other spondylosis, lumbar region Radiculopathy, lumbar region from Last 3 Months Results * MR Lumbar Spine wo Contrast (06/03/2025 8:13 PM EST) Only the most recent of2 resultswithin the time period is included. Anatomical Region Laterality Modality L-spine, Spine Magnetic Resonan ce 06/04/2025 3:50 AM EST Impressions 06/04/2025 3:56 AM EST Multilevel lumbar spondylosis, as above, most prominent at L4-L5 and L5-S1 -------- FINAL REPORT -------- Dictated By: Kimber Orr Dictated Date: 06/04/2025 03:50 ET Assigned Physician: Kimber Orr Reviewed and Electronically Signed By: Kimber Orr Signed Date: 06/04/2025 03:56 ET Workstation ID: [id number] Transcribed By: Self Edit Transcribed Date: 06/04/2025 03:50 ET Narrative 06/04/2025 3:56 AM EST INDICATION: radiculopathy COMPARISON: None TECHNIQUE: Multiplanar, multisequence MRI was performed of the lumbar spine without IV contrast. FINDINGS: Study assumes 5 lumbar type vertebral bodies. Vertebral body heights are maintained. Minimal grade 1 anterolisthesis of L4 on L5 and L5 on S1. Conus terminates at L1. Bone marrow signal is heterogeneous. Visualized cord signal is unremarkable. Multilevel disc desiccation. Cystic change along the posterior aspect of L5. Specific findings are seen at the following levels: T11-T12: Mild diffuse disc bulge without significant spinal canal stenosis or neural foraminal narrowing. T12-L1:No significant spinal canal stenosis or neural foraminal narrowing L1-L2:No significant spinal canal stenosis or neural foraminal narrowing. Tiny left-sided perineural cyst. L2-L3:Mild diffuse disc bulge (eccentric to the left) with facet arthropathy which results in mild left-sided neural foraminal narrowing. No significant spinal canal stenosis. L3-L4:Mild diffuse disc bulge with ligamentum flavum infolding and facet arthropathy (eccentric to the left) with effacement of the ventral thecal sac and mild spinal canal stenosis with moderate left and mild right neural foraminal narrowing. L4-L5:Uncovering of the disc with ligamentum flavum infolding and facet arthropathy which effaces the ventral thecal sac and results in moderate spinal canal stenosis and moderate bilateral neural foraminal narrowing with touching of the exiting right L4 nerve root. L5-S1:Uncovering of the disc with ligamentum flavum infolding and severe facet arthropathy which effaces the ventral thecal sac with mild spinal canal stenosis and moderate bilateral neural foraminal narrowing. Miscellaneous: Visualized SI joints, paraspinal muscles and retroperitoneum are unremarkable. Procedure Note Kimber Orr MD - 06/04/2025 INDICATION: radiculopathy COMPARISON: None TECHNIQUE: Multiplanar, multisequence MRI was performed of the lumbarspine without IV contrast. FINDINGS: Study assumes 5 lumbar type vertebral bodies. Vertebral body heights aremaintained. Minimal grade 1 anterolisthesis of L4 on L5 and L5 on S1.Conus terminates at L1. Bone marrow signal is heterogeneous. Visualizedcord signal is unremarkable. Multilevel disc desiccation. Cystic changealong the posterior aspect of L5. Specific findings are seen at thefollowing levels: T11-T12: Mild diffuse disc bulge without significant spinal canal stenosisor neural foraminal narrowing. T12-L1:No significant spinal canal stenosis or neural foraminalnarrowing L1-L2:No significant spinal canal stenosis or neural foraminal narrowing.Tiny left-sided perineural cyst. L2-L3:Mild diffuse disc bulge (eccentric to the left) with facetarthropathy which results in mild left-sided neural foraminal narrowing.No significant spinal canal stenosis. L3-L4:Mild diffuse disc bulge with ligamentum flavum infolding and facetarthropathy (eccentric to the left) with effacement of the ventral thecalsac and mild spinal canal stenosis with moderate left and mild rightneural foraminal narrowing. L4-L5:Uncovering of the disc with ligamentum flavum infolding and facetarthropathy which effaces the ventral thecal sac and results in moderatespinal canal stenosis and moderate bilateral neural foraminal narrowingwith touching of the exiting right L4 nerve root. L5-S1:Uncovering of the disc with ligamentum flavum infolding and severefacet arthropathy which effaces the ventral thecal sac with mild spinalcanal stenosis and moderate bilateral neural foraminal narrowing. Miscellaneous: Visualized SI joints, paraspinal muscles andretroperitoneum are unremarkable. IMPRESSION: Multilevel lumbar spondylosis, as above, most prominent at L4-L5 andL5-S1 -------- FINAL REPORT -------- Dictated By: Kimber Orr Dictated Date: 06/04/2025 03:50 ET Assigned Physician: Kimber Orr Reviewed and Electronically Signed By: Kimber Orr Signed Date: 06/04/2025 03:56 ET Workstation ID: [id number] Transcribed By: Self Edit Transcribed Date: 06/04/2025 03:50 ET us Aravind [facility] IMG MRI PROCEDURES Final Resul t from Last 3 Months Insurance [facility] Care Teams Screwhead Stoner And Polisher Relationship Specialty Start Date End Date Physician, No Pcp PCP - General 03/31/25
--- OUTSIDE RECORDS SUMMARY | 2025-06-25 23:27 | XMS_ITS | Clinical Summary ---
Author Organization [address] Address [address] [place] [phone] Care Team Providers Care Customs And Border Protection Inspector Name Role Phone Jefferson Zhang Primary Care Provider Allergies No known active allergies Medications MULTIVITAMIN ORAL Take 1 tablet by mouth daily. Active ibuprofen (ADVIL,MOTRIN) 600 mg tablet Take 600 mg by mouth every 6 (six) hours as needed. 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 Major depressive disorder 01/14/2015 Overview (11/18/2021): in therapy Endometritis 05/17/2013 Immunizations Immunization Administration Dates Next Due COVID-19, MODERNA 12Y+, 0.5 mL 10/18/2020 Influenza, injectable, quadr ivalent, preservative free 05/26/2021,06/02/2020,05/16/2016,2014 Influenza, trivalent, inject able, contains preservative 03/30/2022 Family History Medical History Relation Name Comments No Known Problems Brother Cancer Father Heart attack Maternal Grandfather Blindness Maternal Grandmother Diabetes Maternal Grandmother Heart disease Maternal Grandmother Obesity Maternal Grandmother Heart attack Mother Heart disease Mother Other (data conversion) Mother back issues - 9 surgeries Lung cancer Paternal Grandfather smoker Alzheimer's disease Paternal Grandmother No Known Problems Sister Relation Name Status Comments Brother Alive Father Maternal Grandfather Maternal Grandmother Mother Paternal Grandfather Paternal Grandmother Sister Alive Social History Tobacco Use Types Packs/Day [...] Orientation Straight 11/17/2021 3: 04 PM EDT Last Filed Vital Signs Vital Sign Reading Time Taken Comments Blood Pressure 146/95 11/19/2021 11:34 AM EDT Pulse 111 11/19/2021 11:34 AM EDT Temperature 36.4 C (97.6 F) 11/19/2021 11:33 AM EDT Respiratory Rate - - Oxygen Saturation 95% 11/19/2021 11:34 AM EDT Inhaled Oxygen Concentration - - Weight 73 kg (161 lb) 11/19/2021 11:33 AM EDT Height 168 cm (5' 6.14 ) 11/19/2021 11:33 AM EDT Body Mass Index 25.87 11/19/2021 11:33 AM EDT Plan of Treatment Health Maintenance Due Date Last Done Comments Cervical cancer screening 1991 Colon cancer screening, Colonoscopy 2015 Breast cancer screening 07/13/2018 07/13/2016 Pneumococcal Vaccine (50+ years) (1 of 1 - PCV) 2020 Shingles vaccine (Shingrix) (1 of 2 - Shingrix (RZV) 2 Dose Standard Series) 2020 Tetanus adult (Td q 10,TDAP once) 05/07/2023 05/07/2013 Diabetes screening 11/18/2024 11/18/2021, 11/18/2021 Influenza vaccine 02/14/2025 03/30/2022, , 06/02/2020, Additional history exists Covid-19 vaccine series ( season) 2025 02/17/2021, 11/04/2020, 10/18/2020 Lipid disorder screening 11/18/2026 11/18/2021, 0511/2021 RSV Immunization (1 - 1-dose 75+ series) 2045 HIV screening Completed 11/18/2021 Hepatitis C screening Completed 11/18/2021 Meningococcal B Vaccine Aged Out No l onger eligible based on patient's age to complete this topic Meningococcal Vaccine Aged Out No jeannie xenia eligible based on patient's age to complete this topic Procedures Procedure Name Priority Date/Time Associated Diagnosis Comments COMPREHENSIVE METABOLIC PANEL Routine 11/18/2021 8:26 AM EDT Transplant donor evaluation Encounter for examination of potential donor of organ or tissue HIV-1/HIV-2 ANTIBODY/ANTIGEN SCREEN W/REFLEX ([facility]) Routine 11/18/2021 8:26 AM EDT Transplant donor evaluation Encounter for examination of potential donor of organ or tissue LIPID PANEL Routine 11/18/2021 8:26 AM EDT Transplant donor evaluation Encounter for examination of potential donor of organ or tissue HEPATITIS C AB WITH REFLEX TO HCV PCR Routine 11/18/2021 8:26 AM EDT Transplant donor evaluation Encounter for examination of potential donor of organ or tissue from Last 3 Months or Most Recently Relevant to Health Maintenance Results * (ABNORMAL) Comprehensive metabolic panel (11/18/2021 8:26 AM EDT) Sodium 142 136 - 144 mmol/L 11/18/2021 10:04 AM EDT [facility] Potassium 4.1 3.3 - 5.3 mmol/L 11/18/2021 10:04 AM EDT [facility] Chloride 104 98 - 107 mmol/L 11/18/2021 10:04 AM [facility] DE[facility] LAB[facility] MEDIC[facility] CO2 26 20 - 30 mmol/L 11/18/2021 10:04 AM [facility] Anion Gap 12 7 - 17 11/18/2021 10:04 AM [facility] Glucose 94 70 - 100 mg/dL 11/18/2021 10:04 AM [facility] BUN 14 6 - 20 mg/dL 11/18/2021 10:04 AM [facility] Creatinine 0.75 0.40 - 1.30 mg/dL 11/18/2021 10:04 AM [facility] Calcium 9.5 8.8 - 10.2 mg/dL 11/18/2021 10:04 AM [facility] BUN/Creatinine Ratio 18.7 8.0 - 23.0 11/2021 10:04 AM [facility] Total Protein 7.0 6.6 - 8.7 g/dL 11/18/2021 10:04 AM [facility] Albumin 4.9 3.6 - 4.9 g/dL 11/18/2021 10:04 AM [facility] Total Bilirubin 0.5 <=1.2 mg/dL 11/19/19 10:04 AM [facility] Alkaline Phosphatase 73 9 - 122 U/L 11/2021 10:04 AM [facility] Alanine Aminotransferase (ALT) 21 10 - 35 U/L 11/18/2021 10:04 AM [facility] Comment:Calcium dobesilate c an cause artificially low ALT results at therapeutic concentrations Aspartate Aminotransferase (AST) 24 10 - 35 U/L 11/18/2021 10:04 AM [facility] Globulin 2.1(L) 2.3 - 3.5 g/dL 11/18/2021 10:04 AM [facility] A/G Ratio 2.3(H) 1.0 - 2.2 11/18/2021 10:04 AM EDT [facility] AST/ALT Ratio 1.1 See Comment 11/18/2021 10:04 AM EDT [facility] Comment: Adult with mild elevations of transaminases (< 5 times upper limit of normal): AST/ALT > 2 suggests alcoholic liver injury AST/ALT < 1 suggests non-alcoholic fatty liver disease (NAFLD) (healthy): AST/ALT can be > 3 on day 0 AST/ALT < 2 by day 5 The thresholds provided focus on the most common etiologies of elevated serum transaminase levels and the associated alteration of AST:ALT ratios; they are not intended to exclude other feasible and clinically appropriate possibilities eGFR (Afr Amer) >60 >60 mL/min/1.73 m2 11/18/2021 10:04 AM EDT [facility] Comment: Values under 60mL/min/1.73m2 may indicate CKD if noted for more than 3 months. eGFR is only valid if creatinine is at steady state. eGFR (NON -Montenegrin) >60 >60 mL/min/1.73 m2 11/18/2021 10:04 AM EDT [facility] Comment: Values under 60mL/min/1.73m2 may indicate CKD if noted for more than 3 months. eGFR is only valid if creatinine is at steady state. Blood Venipuncture / Unknown 11/18/2021 8:26 AM EDT 11/18/2021 9:25 AM EDT Clarissa Leo MD LAB BLOOD ORDERABLES Final Result [facility] [address] [place] [address] * HIV-1/HIV-2 antibody/antigen screen w/reflex ([facility]) (11/18/2021 8:26 AM EDT) [facility] HIV 1 and 2 Antibody/Antigen Screen Negative Negative 11/18/2021 3:37 PM EDT [facility] Comment:Interpretation: This specimen is HIV antibody negative. A negative test does not exclude the possibility of infection with HIV. Negative results may be seen in early infection, advanced AIDS and agammaglobulinemic patients. If suspicion is high, submit a sample for HIV nucleic acid testing. Blood Venipuncture / Unknown 11/18/2021 8:26 AM EDT 11/18/2021 9:25 AM EDT Clarissa Leo MD LAB BLOOD ORDERABLES Final Result Performing Organization Address [facility] de Phone Number [facility] [address] [place] [address] * Hepatitis C AB with reflex to HCV PCR (11/18/2021 8:26 AM EDT) Pathologist [facility] Hepatitis C Antibody Negative Negative 11/18/2021 3:37 PM EDT [facility] Comment:A negative result do es not exclude HCV infection, since antibodies are not detectable for 4-8 weeks after initial infection, or may not develop in compromised hosts. In high-risk individuals, repeat antibody testing in 2 months and/or HCV RNA PCR should be considered. Blood Venipuncture / Unknown 11/18/2021 8:26 AM EDT 11/18/2021 9:25 AM EDT Clarissa Leo MD LAB BLOOD ORDERABLES Final Result Performing Organization Address [facility] de Phone Number [facility] [address] [place] [address] * (ABNORMAL) Lipid panel (11/18/2021 8:26 AM EDT) Cholesterol 260(H) See Comment mg/dL 11/18/2021 10:04 AM EDT [facility] Comment: Total Cholesterol (mg/dL) Adults (>18 years) Children (<18 years) Desirable <200 <170 Borderline-High 200-239 170-199 High >=240 >=200 HDL 83 >=40 mg/dL 11/18/2021 10:04 AM [facility] Triglycerides 75 See Comment mg/dL 11/18/2021 10:04 AM [facility] Comment: Triglycerides (mg/dL) Adults (>18 years) Children (<18 years) Desirable <150 Not Established Borderline-High 150-199 Not Established High 200-499 Not Established Chol/HDL Ratio 3.1 0.0 - 5.0 11/18/2021 10:04 AM [facility] LDL Calculated 162(H) See Comment mg/dL 11/18/2021 10:04 AM [facility] Comment: LDL Cholesterol (mg/dL) Adults (>18 years) Children (<18 years) Desirable <100 <110 Above Desirable 100-129 Not Established Borderline-High 130-159 110-129 High 160-189 >=130 Very High >=190 Not Established Blood Venipuncture / Unknown 11/18/2021 8:26 AM EDT 11/18/2021 9:25 AM EDT Clarissa Leo MD LAB BLOOD ORDERABLES Final Result [facility] [address] [place] [id number], [facility] [phone] from Last 3 Months or Most Recently Relevant to Health Maintenance Insurance [employer] on file [employer] on file [place] [employer] on file [place] Care Teams Customs And Border Protection Inspector Relationship Specialty Start Date End Date Jefferson Zhang [place] [address] [phone] PCP - General 11/05/21
--- OUTSIDE RECORDS SUMMARY | 2025-06-25 23:27 | XMS_ITS | Encounter Summary ---
Author Organization [facility] Address [address] [place] [phone] Care Team Providers Care Flight Mechanic Name Role Phone Jefferson Zhang Primary Care Provider Encounter Details Date Type Department Care Team (Latest Contact Info) Description 11/18/2021 Transcribed Orders [facility] [address] [place] [address] Clarissa Leo MD [address] [phone] Willing to be liver donor (Primary Dx); Transplant donor evaluation; Encounter for examination of potential donor of organ or tissue Social History Tobacco Use Types Packs/Day Years [...] on file documented as of this encounter Results * EKG (11/18/2021 8:37 AM EDT) ECG - HEART RATE 67 bpm [facility] EKG QRS Interval 78 ms [facility] EKG QT Interval 421 ms [facility] EKG QTC Interval 445 ms [facility] EKG P [place] 45 deg [facility] EKG QRS [place] 35 deg [facility] EKG T Wave [place] 24 deg [facility] EKG P-R Interval 168 msec [facility] EKG SEVERITY Otherwise Normal ECG severity [facility] EKG Comment::Sinus rhythm:PRWP:E lectronically Signed On 11-18-2021 8:42:12 EDT by Cathy London MD 11/18/2021 8:37 AM EDT Clarissa Leo MD ECG ORDERABLES Final Resul t Performing Organization Address City/[facility] Co de Phone Number [facility] EKG * dRVVT Screen/Confirm (L Y) (11/18/2021 8:26 AM EDT) DRV Normalized Ratio 1.01 <=1.20 11/19/2021 10:10 AM EDT [facility] Blood Venipuncture / Unknown 11/18/2021 8:26 AM EDT 11/18/2021 8:54 AM EDT us Clarissa Leo MD LAB BLOOD ORDERABLES Final Result [facility] MEDICINE [address] [place] [address] documented in this encounter Visit Diagnoses Diagnosis Willing to be liver donor- Primary Transplant donor evaluation Other specified general medical examination Encounter for examination of potential donor of organ or tissue Other specified general medical examination documented in this encounter Additional Health Concerns Assessment Noted Time PHQ-9 Depression Total Score: 0 11/19/19 22 2:01 PM EDT documented as of this encounter Care Teams Flight Mechanic Relationship Specialty Start Date End Date Jefferson Zhang [place] [address] [phone] PCP - General 11/05/21 documented as of this encounter
--- OUTSIDE RECORDS SUMMARY | 2025-06-25 23:27 | XMS_ITS | Encounter Summary ---
Author Organization [facility] Address [address] [place] [id number] Care Team Providers Care Bowl Attendant Name Role Phone Jefferson Zhang Primary Care Provider Encounter Details Date Type Department Care Team (Late st Contact Info) Description 09/17/2021 Abstract [facility] [address] [place] [address] Roldan Beebe, PCT Social History Tobacco Use Types Packs/Day Years Used Date Smoking Tobacco: Never Assessed Comments Unknown Sex and Gender Information Value Date Recorded Sex Assigned at Female 11/17/2021 3:04 PM EDT Legal Sex Female 12:48 PM EST Gender Identity Female 11/17/2021 3:04 PM EDT Sexual Orientation Straight 11/17/2021 3: 04 PM EDT documented as of this encounter Last Filed Vital Signs Vital Sign Reading Time Taken Comments Blood Pressure - - Pulse - - Temperature - - Respiratory Rate - - Oxygen Saturation - - Inhaled Oxygen Concentration - - Weight 72.6 kg (160 lb) 09/17/2021 9:00 AM EST Height 162.6 cm (5' 4 ) 09/17/2021 9:00 AM EST Body Mass Index 27.46 09/17/2021 9:00 AM EST documented in this encounter Plan of Treatment Not on file documented as of this encounter Visit Diagnoses Not on filedocumented in this encounter Care Teams Bowl Attendant Relationship Specialty Start Date End Date Jefferson Zhang PA [address] [id number] PCP - General 11/05/21 documented as of this encounter
== END 2025-06-25 15:50 | disposition home or self-care (01) ==
LOC: HO.HPHYS 14:55
PROVIDERS: PCP Registered Nurse; Visit Provider Physician Assistant
DX: M54.16 Radiculopathy, lumbar region (principal); M47.816 Spondylosis without myelopathy or radiculopathy, lumbar region
CPT/HCPCS: 99213